=== PATIENT | female | born 1930 | race Caucasian/White ===

== ENCOUNTER 2017-06-11 15:08 | Inpatient (IN) | payer MEDICARE, OTHER ==
[~2017-06-11] VITALS: Ht 160 cm; Wt 101.0 kg
[~2017-06-11 15:08] MED LIST: ATEN25TA7 PO; CELE200 PO; DIT5 PO; HYDR12.5 PO; LISI10TA PO
[2017-06-11 15:28] VITALS: BP 141/93; PULSE 107; RESP 20; O2SAT 96
--- NOTE | 2017-06-11 18:08 | ED.REPORT ---
HPI-General Illness Date of Service Jun 11, 2017 ED Provider: Sherman Langford DO Pt is an 86 y/o female w/ a hx of HTN presenting to the ED c/o R hip pain secondary to mechanical ground level fall which occurred prior to arrival. The patient was upstairs in the hospital visiting a friend and her foot apparently got stuck on the floor causing her to lose her balance and fell to the floor onto her right hip. She was able to ambulate briefly after the fall. Her only complaint at this time is right hip pain. Pt denies numbness/weakness, syncope, change in LOC, head injury, any other injury, any other site of pain. Nursing Notes Stated Complaint: FALL RIGHT HIP PAIN Chief Complaint: Extremity Trauma Nursing Notes Reviewed: Yes Allergies: Coded Allergies: No Known Allergies (Unverified , 02/20/16) Scheduled Atenolol (Atenolol) 25 Mg Tablet 25 MG PO DAILY Atorvastatin (Lipitor) 20 Mg Tablet 20 MG PO DAILY Hydrochlorothiazide (Hydrochlorothiazide) 12.5 Mg Capsule 12.5 MG PO DAILY Lisinopril (Lisinopril) 10 Mg Tablet 10 MG PO DAILY Oxybutynin Chloride (Oxybutynin Chloride) 5 Mg Tablet 5 MG PO DAILY General Time Seen by MD: 18:04 Chief Complaint Other (fall) Hx Obtained From: Patient Arrived By: Wheelchair Sudden in Onset?: Yes Onset Occurred: Just prior to arrival Symptom Duration: Since onset Location: : Hip right Quality: Painful Severity: Current: Moderate Severity: Maximum: Moderate Past Medical History Past Medical History Reports: Hypertension Past Surgical History bladder surgery X4 bilateral knee replacement. Smoking History Former Smoker Social History Alcohol Use: "Social" Drug Use: Denies drug use Ambulatory Status Independent Review of Systems Full Review of Systems Constitutional: Denies: Chills, Fever Respiratory: Denies: Pleuritic pain Cardiovascular: Denies: Chest pain GI: Denies: Abdominal pain Musculoskeletal: Reports: Extremity pain, Joint pain Neurologic: Denies: Abnormal movement, Bladder dysfunction, Bowel dysfunction, Change LOC, Confusion, Dizziness, Focal weakness, Headache, Lightheaded, Numbness, Problem walking, Seizure, Shaking, Slurred speech, Spinning sensation , Syncope, Unable to speak, Vision change, Weakness Complete sys rev & neg: except as marked. Physical Exam Vital Signs Vital Signs Date Time Temp Pulse Resp B/P Pulse Ox O2 Delivery O2 Flow Rate FiO2 06/11/17 20:57 89 16 175/92 98 Room Air 06/11/17 15:28 36.8 107 20 141/93 96 Room Air Initial VS: Reviewed, Vital signs abnormal Head / Eyes: Atraumatic, Normocephalic, PERRL ENT: Mucous membranes moist, Conjunctiva normal, No scleral icterus Neck: Supple, Full range of motion Respiratory: Breath sounds normal, Clear to auscultation, No respiratory distress Cardiovascular: Regular rate & rhythm, Heart sounds normal, Intact distal pulses Abdomen / GI: Soft, Non-tender, No guarding, No rebound, No distention Skin: Warm, Dry, No cyanosis Neurologic: Alert, Oriented, Nonfocal Psychiatric: Mood/affect normal, Behavior normal, Normal thought content General/Constitutional: Awake, Alert, No acute distress, Cooperative, Not toxic appearing Lower Extremity / Pelvis / MS: Neurologic intact, Vascular intact RLE: Externally rotated, shortened, tender over right hip. Interpretation & Diagnostics Lab Results Interpretation Result Diagram: 06/13/17 0528 06/13/17 0528 Test 06/11/17 20:14 06/11/17 21:17 Prothrombin Time 10.2sec (8.1-12.5) Prothromb Time International Ratio 0.95ratio Thyroid Stimulating Hormone (TSH) 1.790uIU/mL (0.450-4.500) Free Thyroxine 1.03ng/dL (0.82-1.77) Urine Color Straw (YELLOW) Urine Appearance Hazy (CLEAR,HAZY) Urine pH 5.0 (5.0-8.0) Urine Specific [place] 1.018 (1.003-1.035) Urine Protein Negativemg/dL (NEG,TRACE) Urine Glucose (UA) Negativemg/dL (NEGATIVE) Urine Ketones Negativemg/dL (NEGATIVE) Urine Occult Blood Negative (NEGATIVE) Urine Nitrite Positive (NEGATIVE) Urine Bilirubin Negative (NEGATIVE) Urine Urobilinogen Normalmg/dL (NORMAL) Urine Leukocyte Esterase Trace (NEGATIVE) Urine RBC 0-2/hpf (0-2) Urine WBC 6-10/hpf (0-5) Urine Epithelial Cells Few/hpf (NONE-MOD) Urine Crystals None seen (NONE SEEN) Urine Bacteria Many/hpf (NONE-FEW) Urine Hyaline Casts None/lpf (NONE) Urine Granular Casts None seen (NONE SEEN) Urine Waxy Casts None seen (NONE SEEN) Urine Red Blood Cell Casts None seen (NONE SEEN) Urine White Blood Cell Casts Rare (NONE SEEN) Urine Mucus Present (None Seen) Urine Trichomonas None seen (NONE SEEN) Urine Yeast None (NONE SEEN) Urinalysis Comment None Urine Culture Reflexed Indicated X-Ray Chest Interpretation Chest Xray Interpretation: IMPRESSION: No acute pulmonary process. Dictated by: Marisa Lora M.D. on 06/11/2017 at 21:13 Approved by: Marisa Lora M.D. on 06/11/2017 at 21:13 View: Portable, 1 view Interpretation / Wet Read by: Interpret - Radiologist X-Ray Interpretation Xray Interpretation: IMPRESSION: Impacted right femoral neck fracture Dictated by: Marisa Lora M.D. on 06/11/2017 at 21:10 Approved by: Marisa Lora M.D. on 06/11/2017 at 21:11 X-Ray Ordered: Pelvis, Hip right Interpretation / Wet Read by: Interpret - Radiologist Re-Eval/Medical Decision Med Decision/Clinical Course Mechanical mechanism for pt fall, however labs reveal leukocytosis and UTI findings. Pt treated with rocephin. Dr. Deluca consulted and will perform surgery tomorrow. Pt admitted to hospital as unable to ambulate. Initially tachycardic but HR slowed with pain control. HTN felt to be secondary to pain Source of Hx: Old records Time of Eval: 21:23 Re-Evaluation/Progress Note: Pt rechecked. Comfortable. Discussed imaging findings. Consultation #1: Referral / Consult Name: Theron Deluca DO Consulted With: Orthopedic Call Returned at: 21:39 Director Hr Communications: Agrees with eval, Agrees with plan Note: NPO at midnight. Admit to hospitalist. Will perform surg tomorrow. Consultation #2: Referral / Consult Name: Yanni Luna MD Consulted With: Hospitalist Call Returned at: 22:02 Director Hr Communications: Will see patient, Agrees with eval, Agrees with plan, Accepts admit Counseled Regarding: Diagnosis, Lab results, Need for admission Discharge & Departure Primary Impression: Fracture of femoral neck, right Encounter type: initial encounter Fracture type: closed Qualified Code: S72.001A - Fracture of unspecified part of neck of right femur, initial encounter for closed fracture Additional Impressions: Fall from ground level Leukocytosis Leukocytosis type: unspecified Qualified Code: D72.829 - Elevated white blood cell count, unspecified UTI (urinary tract infection) Urinary tract infection type: site unspecified Hematuria presence: without hematuria Qualified Code: N39.0 - Urinary tract infection, site not specified Tachycardia Hypertension Hypertension type: essential hypertension Qualified Code: I10 - Essential ( primary) hypertension Disposition: ADMITTED TO HOSPITAL Discharge Condition All VS Reviewed: Yes Condition: Stable Referrals: Solange Ma (PCP) Raza Attestation Portions of this note were transcribed by Dave Rushing. I, Dr. Langford personally performed the history, physical exam and medical decision-making; I reviewed and confirmed the accuracy of the information in the transcribed note. Signed by Raza Wang, 06/11/17 - 1830 copies to: Solange Ma Gary R DO Jun 11, 2017 18:08 DAVE RUSHING Jun 11, 2017 18:23 Urine Mucus Present (None Seen) Urine Trichomonas None seen (NONE SEEN) Urine Yeast None (NONE SEEN) Urinalysis Comment None Urine Culture Reflexed Indicated X-Ray Chest Interpretation Chest Xray Interpretation: IMPRESSION: No acute pulmonary process. Dictated by: Marisa Lora M.D. on 06/11/2017 at 21:13 Approved by: Marisa Lora M.D. on 06/11/2017 at 21:13 View: Portable, 1 view Interpretation / Wet Read by: Interpret - Radiologist X-Ray Interpretation Xray Interpretation: IMPRESSION: Impacted right femoral neck fracture Dictated by: Marisa Lora M.D. on 06/11/2017 at 21:10 Approved by: Marisa Lora M.D. on 06/11/2017 at 21:11 X-Ray Ordered: Pelvis, Hip right Interpretation / Wet Read by: Interpret - Radiologist Re-Eval/Medical Decision Source of Hx: Old records Time of Eval: 21:23 Re-Evaluation/Progress Note: Pt rechecked. Comfortable. Discussed imaging findings. Consultation #1: Referral / Consult Name: Theron Deluca DO Consulted With: Orthopedic Call Returned at: 21:39 Director Hr Communications: Agrees with eval, Agrees with plan Note: NPO at midnight. Admit to hospitalist. Will perform surg tomorrow. Consultation #2: Referral / Consult Name: Yanni Luna MD Consulted With: Hospitalist Call Returned at: 22:02 Director Hr Communications: Will see patient, Agrees with eval, Agrees with plan, Accepts admit Counseled Regarding: Diagnosis, Lab results, Need for admission Discharge & Departure Primary Impression: Fracture of femoral neck, right Encounter type: initial encounter Fracture type: closed Qualified Code: S72.001A - Fracture of unspecified part of neck of right femur, initial encounter for closed fracture Additional Impressions: Fall from ground level Leukocytosis Leukocytosis type: unspecified Qualified Code: D72.829 - Elevated white blood cell count, unspecified UTI (urinary tract infection) Urinary tract infection type: site unspecified Hematuria presence: without hematuria Qualified Code: N39.0 - Urinary tract infection, site not specified Disposition: ADMITTED TO HOSPITAL Discharge Condition All VS Reviewed: Yes Condition: Stable Referrals: Solange Ma (PCP) Scribe Attestation Portions of this note were transcribed by Dave Rushing. I, Dr. Langford personally performed the history, physical exam and medical decision-making; I reviewed and confirmed the accuracy of the information in the transcribed note. Signed by Raza Wang, 06/11/17 - 1830 copies to: Solange Ma Gary R DO Jun 11, 2017 18:08 DAVE RUSHING Jun 11, 2017 18:23
[2017-06-11] MEDS ORDERED: Ondansetron 2 mg/mL 2 mL Inj IVPUSH ONE (18:30)
[2017-06-11] MEDS: HYDROmorphone 0.5 mg/0.5 mL iSecure Syringe IVPUSH PRN ×2 (20:05→22:23)
[2017-06-11 20:27] LABS: BASOPHILS % (AUTO) 0.2 % (0-3); EOSINOPHILS % (AUTO) 0.1 % (0-5); MONOCYTES % (AUTO) 5.4 % (4-12); Mean Corpuscular Hemoglobin 30.3 pg (27.0-35.0); Mean Corpuscular Volume 92.8 fL (81-100); NEUTROPHILS % (AUTO) 89.9 % (40-74); Platelet Count 186 bil/L (150-400)
[2017-06-11 20:57] VITALS: BP 175/92; PULSE 89; RESP 16; O2SAT 98
--- NOTE | 2017-06-11 21:13 | DRSVH ---
PROCEDURE: X-RAY PELVIS W/LAT HIP (RT) ([id number]) INDICATIONS: fall TECHNIQUE: AP pelvis with lateral view(s) of the right hip(s). COMPARISON: None. FINDINGS: Bones: There is a right impacted femoral neck fracture. No gross dislocation. Soft tissues: The visualized bowel gas pattern is normal. No suspicious soft tissue calcifications. IMPRESSION: Impacted right femoral neck fracture Dictated by: Marisa Lora M.D. on 06/11/2017 at 21:10 Approved by: Marisa Lora M.D. on 06/11/2017 at 21:11
--- NOTE | 2017-06-11 21:15 | DRSVH ---
PROCEDURE: X-RAY CHEST ONE VIEW ([id number]) INDICATIONS: FALL, PREOPERATIVE HIP TECHNIQUE: One view of the chest was acquired. COMPARISON: [facility], CR, XR CHEST 2VW, 02/20/2016, 11:50. FINDINGS: Surgical changes and devices: None. Lungs and pleura: No pleural effusions or pneumothorax. Lungs are clear. Mediastinum: Mediastinal contours appear normal. Heart size is normal. Bones and chest wall: No suspicious bony lesions. Overlying soft tissues appear unremarkable. IMPRESSION: No acute pulmonary process. Dictated by: Marisa Lora M.D. on 06/11/2017 at 21:13 Approved by: Marisa Lora M.D. on 06/11/2017 at 21:13
[2017-06-11 21:28] LABS: APPEARANCE,URINE HAZY (CLEAR,HAZY); COLOR,URINE STRAW (YELLOW); OCCULT BLOOD,URINE NEGATIVE (NEGATIVE); UROBILINOGEN,URINE NORMAL (NORMAL)
[2017-06-11] MEDS ORDERED: cefTRIAXone Inj 1,000 MG in Dextrose 5% Minibag Plus 50 ML IV ONE (22:05)
[2017-06-11 22:41] VITALS: BP 163/89; PULSE 90; RESP 16; O2SAT 100
[2017-06-11 22:56] LABS: INR 0.95 ratio
[2017-06-11] MEDS ORDERED: Polyethylene Glycol (PEG) 17 Gm Powder PO PRN (23:05)
[2017-06-11] MEDS ORDERED: Lactated Ringer's 1,000 ML IV SCH (23:05)
[2017-06-11] MEDS ORDERED: Alum-Mag Hydrox-Simeth 30 mL Suspension PO PRN (23:05)
[2017-06-11] MEDS ORDERED: Ondansetron 2 mg/mL 2 mL Inj IVPUSH PRN (23:05)
[2017-06-11] MEDS ORDERED: HYDROcodone-APAP 5-325 mg Tablet PO PRN (23:05)
[2017-06-11 23:25] VITALS: BP 174/104; PULSE 85; RESP 17; O2SAT 97
--- NOTE | 2017-06-11 23:25 | PCM.HPMED ---
Subjective Date of Service Jun 11, 2017 Primary Provider: Admitting Physician: Yanni Luna MD Primary Care Physician: Solange Ma Attending Physician: Yanni Luna MD Chief Complaint: GLF, right hip pain History of Present Illness: 86 yo F with history of HTN, hyperparathyroidism, osteoporosis, and OA who presented to the ED for right hip pain after a mechanical GLF earlier today. She reports that she was visiting a friend in the hospital when she had her foot caught on the ground, loss balance, and fell on her right hip. After the fall, she was still able to briefly walk, but was having fairly severe pain on her right hip. She denies ever losing consciousness, hitting her head, or any confusion afterwards. Prior to the episode, she did not have any CP, SOB, fevers , or dizziness. She was basically at her regular baseline prior to the fall. She does not use any assistive device for ambulation at baseline. In the ED, she was mildly hypertensive but afebrile and stable., Her hip x-ray showed an impacted right femoral neck fracture, and her CBC showed a white count of 18.4 with 90% neutrophils. Her CMP did show a calcium of 11.2. Her UA was positive for nitrites and trace leukocyte esterase with 6-10 white blood cells. Patient at baseline has urinary incontinence issues and has not noticed any dysuria or fevers or flank pain. Review of Systems: Comprehensive review of systems was conducted with the patient and found to be negative except as noted above in HPI. Allergies Coded Allergies: No Known Allergies (Unverified , 02/20/16) [facility] acetaminophen 325 mg tablet take 2 tablet by oral route every 6 hours as needed LIPITOR 10MG TABLET TAKE 1 TABLET BY ORAL ROUTE EVERY DAY lisinopril 10 mg tablet take 1 tablet by oral route every day OXYBUTYNIN 5MG TABS TABLET TAKE 1 TABLET BY ORAL ROUTE 2 TIMES EVERY DAY Vitamin D3 1,000 unit capsule Take two capsules by mouth once a day PMH Hypertension Hyperparathyroidism with hypercalcemia Osteoarthritis Hyperlipidemia Urinary incontinence with overactive bladder Vitamin D deficiency Osteoporosis Surgical History Bilateral TKR Total hysterectomy Prolapsed bladder repair 4 Family History Family history of heart disease and parkinson's Social History Hx Alcohol Use: Yes (rare) Hx Substance Use: No Smoking Status: Former Smoker (Quit in ) Living Arrangement: with Family Exam Vital Signs Vital Sign - Last Date Time Temp Pulse Resp B/P Pulse Ox O2 Delivery O2 Flow Rate FiO2 06/11/17 22:41 36.2 90 16 163/89 100 Room Air Exam General: Obese elderly female who appears in mild pain at rest HEENT: Normocephalic, atraumatic. PERRLA, EOMI. Anicteric sclerae, moist conjunctivae, and no lid lag. Oropharynx free of erythema and cobble stoning with moist mucosa. Upper dentures noted Neck: Supple with full range of motion. No jugular venous distension. Cardiovascular: Regular rate and rhythm with soft systolic murmur Pulmonary: Clear to auscultation bilaterally with no crackles, wheezes, or rhonchi. Normal respiratory effort with no use of accessory muscles. Abdomen: Obese, Bowel tones present. Soft, nontender, nondistended. No hepatosplenomegaly or masses appreciated. MSK: Right hip tender to palpation laterally and with minimal motion. No ecchymosis noted yet. Bilateral knee midline scars. No other tender or swollen joints noted. No cyanosis or edema noted. Skin: Warm, dry, intact Neurological: Cranial nerves grossly intact. MS grossly intact except in Right hip due to pain. Light sensation grossly intact Psychiatric: Normal mood and affect. Alert and oriented to person, place, and time. Pleasant and cooperative Lab and Diagnostics Result Diagram: 06/11/17201306/11/172013 X-Rays, CTs and MRIs PROCEDURE: X-RAY PELVIS W/LAT HIP (RT) ([id number]) IMPRESSION: Impacted right femoral neck fracture Assessment & Plan 86 yo F with history of HTN, hyperparathyroidism, osteoporosis, and OA who presented to the ED for right hip pain after a mechanical GLF earlier today. Admitted for right femoral neck impacted fracture. Right Femoral Neck Fracture, Acute, POA As demonstrated on hip xray. Orthopedics consulted NPO after midnight for procedure tomorrow. IVF 80cc/hr Pain control with Toradol, Percocet, and IV Dilaudid for severe pain PT/OT ordered Possible UTI, POA UA positive for nitrites and trace LEs. Patient does have chronic urinary incontinence, this may be due to just colonization Ceftriaxone was started in the ED on 06/11, we will plan to continue this Essential HTN, POA Mildly elevated on Admission, likely exacerbated due to pain Will give her the Lisinopril dosage tonight to help control her HTN Hyperparathyroidism, POA Currently undergoing evaluation for parathyroid nodule Ca level mildly elevated on admission Osteoporosis, POA Was previously on bisphosphonate therapy, but has not on this currently Osteoarthritis, POA S/p bilateral TKR, pain management as above Tylenol prn fever/pain Bowel Regimen prn constipation CODE STATUS: Full resuscitation Patient is admitted under inpatient status with expected length of stay greater than 2 midnights due to severity of presenting symptoms, risk of adverse event, and complexity of treatment plan. Pain Evaluation: Adequate Pain Control VTE Prophylaxis: Sub-Q Heparin (Unfractionated) Resuscitation Status: CPR: Attempt Resuscitation Attending Statement Pt seen and examined by myself and agree with above plan. Rafy Garcia DO Jun 11, 2017 23:25 Yanni Luna MD Jun 12, 2017 05:57
[2017-06-11 23:41] VITALS: BP 163/89; PULSE 90; RESP 16; O2SAT 100
[2017-06-12] VITALS (19 sets, daily range): BP systolic 95–157; BP diastolic 45–93; PULSE 65–89; RESP 12–20; O2SAT 96–100
[2017-06-12] MEDS: HYDROmorphone 0.5 mg/0.5 mL iSecure Syringe IVPUSH PRN ×4 (01:27→13:05)
[2017-06-12] MEDS ORDERED: ATOR20TA PO (02:23)
[2017-06-12 06:17] LABS: BASOPHILS % (AUTO) 0.3 % (0-3); EOSINOPHILS % (AUTO) 0.2 % (0-5); MONOCYTES % (AUTO) 11.1 % (4-12); Mean Corpuscular Hemoglobin 30.3 pg (27.0-35.0); Mean Corpuscular Volume 92.8 fL (81-100); NEUTROPHILS % (AUTO) 78.5 % (40-74); Platelet Count 184 bil/L (150-400)
[2017-06-12] MEDS ORDERED: OXYB5TAB10 PO (07:32)
[2017-06-12] MEDS ORDERED: ATEN25TA PO (07:32)
[2017-06-12] MEDS ORDERED: Lactated Ringer's 1,000 ML IV ONE ×3 (09:31→15:10)
--- NOTE | 2017-06-12 09:32 | PCM.HPANE ---
Patient Data Surgeon Admitting Provider:Yanni Luna MD Attending Provider:Lucas Barcenas MD Primary Care Physician:Solange Ma Other Provider: Reason for Visit Rt Hip Fracture,Uti Ht/WT & BMI Height (Feet): 5 Height (Inches): 3.00 Weight (Kilograms): 94.100 Body Mass Index 36.76 Allergies Coded Allergies: No Known Allergies (Unverified , 02/20/16) Past Anesthesia History Anesthesia History: Denies:: Abnormal Airway, Anesthesia Reactions, Difficult Intubation, Fam Anesthesia Reaction, Fam Malignant Hypertherm, Malignant Hyperthermia Diabetes History Hx Diabetes?: No MRSA MRSA: No Medications Active Scripts Hydrochlorothiazide 12.5 Mg Fnjbkuh71.5 Mg PO DAILY 90 Days Ref 1 Prov:Jared Bowers MD 02/20/16 Lisinopril 10 Mg [id number] Mg PO DAILY htn #90 TABLET Ref 2 Prov:Jared Bowers MD 02/20/16 Reported Medications Atenolol 25 Mg [id number] Mg PO DAILY #30 TABLET Ref 0 06/12/17 Oxybutynin Chloride 5 Mg Tablet5 Mg PO DAILY #180 06/12/17 Atorvastatin (Lipitor)20 Mg [id number] Mg PO DAILY Ref 0 06/12/17 Discontinued Reported Medications Celecoxib-Expunged Drug, Do Not Renew! 200 Mg [id number] Mg PO DAILY 06/11/10 Lisinopril-Expunged Drug, Do Not Renew! 10 Mg Oyqjci93 Mg PO DAILY 06/11/10 Atenolol-Expunged Drug, Do Not Renew! 25 Mg Yitqnq25 Mg PO DAILY 06/11/10 Oxybutynin-Expunged Drug, Do Not Renew! (Ditropan-Expunged Drug, Do Not Renew!) 5 Mg Tablet5 Mg PO DAILY 06/11/10 History History of ENT Problems?: No HEENT History: Positive for:: Cataracts Denies:: Abnormal Airway Difficult Intubation Dysphagia Glaucoma Hearing Problem Sinus Problem TMJ Denture Type: Full- Upper Partial- Lower Teeth Condition: Within Normal Limits Hx of Heart Problems?: Yes Cardiovascular History: Positive for:: Edema (right side ankle) Hypertension Denies:: AICD Abdominal Aortic Aneurism Atrial Fibrillation Cardiac Surgery Chest Pain Congestive Heart Failure Coronary Artery Disease Heart Murmur Irregular Heartbeat Pacemaker Peripheral Vascular Rheumatic Fever Thrombophlebitis Valvular Heart Disease Other Cardiac History: Patient denies chest pain Hx of Respiratory Problem?: No Respiratory History: Denies:: Asthma COPD Chest Surgery Dyspnea Emphysema Hemoptysis Pneumonia Tuberculosis Other Resp Pertinent History: Patient denies sob Hx Neurologic Problems?: No Neurological History: Positive for:: Dizziness (when bending over) Denies:: Alzheimer's Disease CVA Dementia Headaches Parkinson's Disease Seizures Hx of GI Problems?: No Hx of Problems?: No Genitourinary History: Positive for:: Urinary Tract Infection Denies:: HX of Hemodialysis Kidney Stones HX of Peritoneal Dialysis: No Other Pertinent History: present on admission Female Hx: Denies:: Currently Endometriosis Pelvic Inflammatory Problems with Breasts? Hx Musculoskeletal Problems?: Yes Musculoskeletal History: Positive for:: Joint Replacement (bilateral knees) Denies:: Back Injury Degenerative Joint Fibromyalgia Musculoskeletal Trauma Myasthenia Gravis Osteoarthritis Rheumatoid Arthritis Systemic Lupus Hx of Psycho/Social Problems?: No Psycho Social History: Denies:: Anxiety Bipolar Disorder Hx Depression Suicide Attempt Hx Surgeries?: Yes Hx Any Other Health Problems?: No Other History: Positive for:: Hospitalization Thyroid Disease (nodules) Denies:: Cancer History Blood Transfusions: Positive for:: Accept Blood Products? Denies:: Blood Transfuse Reaction Blood Transfusions Hx Diabetes: No Hx Alcohol Use: YesAlcoholic Drinks Per Day: Occassionally 1-2 weekHx Substance Use: No Smoking Status: Former Smoker (Quit in ) Have You Smoked inLast 12 mo: Yes Stop/Bang Treated for Sleep Apnea?: No S-Snoring: Do You Snore Loudly: No T-Tired: feel tired, fatigued: No O-Obsered: Observed not breath: No P-Blood Pressure: treated: Yes B- Body Mass Index > 35 kg/m2: Yes A- Age over 50: Yes N- Neck Large Circumference: Yes G- Gender Male: No CANDE Total Score: 4 Risk Assessment Category Category 1A: Patient has history of documented sleep apnea, and HAS NOT received any narcotic, sedative or anesthesia administration during this stay. Category 1B: Patient has history of documented sleep apnea, and HAS received any narcotic , sedative or anesthesia administration during this stay Category 2: Patient has SUSPECTED Obstructive Sleep Apnea, and HAS received any narcotic , sedative or anesthesia administration during this stay. Category 3: Patient has SUSPECTED Obstructive Sleep Apnea and HAS NOT received narcotic, sedative or anesthesia administration during this stay. Category 4: Outpatient in Procedural Areas with known sleep apnea or who screen positive for High Risk via the STOP/BANG questionnaire. Exam Exam Vital Signs Vital Signs Date Time Temp Pulse Resp B/P Pulse Ox O2 Delivery O2 Flow Rate FiO2 06/12/17 05:49 36.9 86 17 153/93 97 Room Air General Appearance: Alert, Oriented X3, Cooperative HEENT/AIRWAY: MP 2, Neck Movement (from), Mouth Opening (wnl) Lungs: Clear to Auscultation Heart: Exam Unremarkable Meds/Labs/Diagnostics Admission Meds Current Medications Ondansetron HCl 4 mg 4 mg ONCE ONCE IVPUSH Last administered on 06/11/17 20: 03; Start 06/11/17 at 18:30; Stop 06/11/17 at 18:31; Status DC Ceftriaxone Sodium 1000 mg/ Dextrose/Water 50 ml @ 100 mls/hr ONCE ONCE IV Last administered on 06/11/17 22:14; Start 06/11/17 at 22:05; Stop 06/11/17 at 22:34; Status DC Lactated Ringer's (Lr) 1,000 ml @ 80 mls/hr [id number] IV Last administered on 00:19; Start 06/11/17 at 23:05 Lisinopril (Zestril) 10 mg DAILY PO Last administered on 06/12/17 00:17; Start 06/11/17 at 23:20 Labs Test 06/11/17 20:14 06/11/17 21:17 06/12/17 05:47 Prothrombin Time 10.2sec (8.1-12.5) Prothromb Time International Ratio 0.95ratio Total Bilirubin 0.4mg/dL (0.0-1.2) Aspartate Amino Transf (AST/SGOT) 35U/L (0-50) Alanine Aminotransferase (ALT/SGPT) 30U/L (0-32) Alkaline Phosphatase 79U/L (25-165) Total Protein 7.6g/dL (6.4-8.4) Albumin 4.2g/dL (3.4-5.0) Thyroid Stimulating Hormone (TSH) 1.790uIU/mL (0.450-4.500) Free Thyroxine 1.03ng/dL (0.82-1.77) Urine Color Straw (YELLOW) Urine Appearance Hazy (CLEAR,HAZY) Urine pH 5.0 (5.0-8.0) Urine Specific Boswell 1.018 (1.003-1.035) Urine Protein Negativemg/dL (NEG,TRACE) Urine Glucose (UA) Negativemg/dL (NEGATIVE) Urine Ketones Negativemg/dL (NEGATIVE) Urine Occult Blood Negative (NEGATIVE) Urine Nitrite Positive (NEGATIVE) Urine Bilirubin Negative (NEGATIVE) Urine Urobilinogen Normalmg/dL (NORMAL) Urine Leukocyte Esterase Trace (NEGATIVE) Urine RBC 0-2/hpf (0-2) Urine WBC 6-10/hpf (0-5) Urine Epithelial Cells Few/hpf (NONE-MOD) Urine Crystals None seen (NONE SEEN) Urine Bacteria Many/hpf (NONE-FEW) Urine Hyaline Casts None/lpf (NONE) Urine Granular Casts None seen (NONE SEEN) Urine Waxy Casts None seen (NONE SEEN) Urine Red Blood Cell Casts None seen (NONE SEEN) Urine White Blood Cell Casts Rare (NONE SEEN) Urine Mucus Present (None Seen) Urine Trichomonas None seen (NONE SEEN) Urine Yeast None (NONE SEEN) Urinalysis Comment None Urine Culture Reflexed Indicated White Blood Count 11.6th/mm3 (3.8-10.1) Red Blood Count 4.33mil/mm3 (3.90-5.20) Hemoglobin 13.1g/dL (12.0-15.6) Hematocrit 40.2% (35.0-46.0) Mean Corpuscular Volume 92.8fL (81-100) Mean Corpuscular Hemoglobin 30.3pg (27.0-35.0) Mean Corpuscular Hemoglobin Concent 32.6% (32.0-37.0) Red Cell Distribution Width 13.1% (12.3-15.4) Platelet Count 184bil/L (150-400) Neutrophils (%) (Auto) 78.5% (40-74) Lymphocytes (%) (Auto) 9.6% (14-46) Monocytes (%) (Auto) 11.1% (4-12) Eosinophils (%) (Auto) 0.2% (0-5) Basophils (%) (Auto) 0.3% (0-3) Sodium Level 141mEq/L (134-144) Potassium Level 5.0mEq/L (3.5-5.2) Chloride Level 104mEq/L (97-108) Carbon Dioxide Level 22mmol/L (18-29) Blood Urea Nitrogen 27mg/dL (8-27) Creatinine 1.04mg/dL (0.57-1.00) Estimat Glomerular Filtration Rate 72mL/min (>59) Glucose Level 113mg/dL (60-99) Calcium Level 10.7mg/dL (8.5-10.1) Plan Impression Patient chart reviewed, patient interviewed and anesthestic plan with risks, benefits, and alternatives discussed, and informed consent obtained. ASA Physical Status: ASA2 Mod Systemic Disease Anesthetic Plan: GA Bene/Risks/Altern/Consents: Yes HP Complete Prior to Induction: Yes Andrews Pool MD Jun 12, 2017 09:32
--- NOTE | 2017-06-12 12:34 | CONS ---
[address] [address] CONSULTATION REPORT PATIENT: ROGER REID : [id number] MR#: [id number] ADMIT: 06/11/2017 JOB ID: [id number] DATE OF SERVICE: 06/12/2017 ORTHOPEDIC CONSULTATION: CHIEF COMPLAINT: Right hip pain. HISTORY PRESENT ILLNESS: This is a pleasant 86-year-old female that was visiting a friend on the 3rd floor of the hospital. She got up to leave and lost her balance and fell directly onto her right hip. She was able to get up to a chair but was unable to place weight onto the lower extremity after she tried to get back up. They thus transferred her to the emergency department where x-rays were obtained demonstrating a hip fracture. Orthopedics was also consulted for further evaluation and treatment. The patient only complains of right hip pain. She has no difficulty with ambulation prior to the fall. She does not utilize any assistive devices despite having two previous total knee arthroplasties, the most recent done about seven years ago. She denies any numbness or tingling in the lower extremities. She denies any other associated symptoms. PAST MEDICAL HISTORY: Hypertension, leaky bladder. PAST SURGICAL HISTORY: Bilateral total knee arthroplasties, multiple bladder surgeries, hysterectomy, and knee surgery to remove a retractor that was left. FAMILY HISTORY: Noncontributory. SOCIAL HISTORY: The patient denies any tobacco or illicit drug utilization. She drinks one lemon drop a week and has one Denia's a week. She lives at home by herself. MEDICATIONS: Please see electronic medical record for a list of the patient's medications. ALLERGIES: No known drug allergies. REVIEW OF SYSTEMS: The patient denies any fevers, sweats, chills, chest pain, shortness of breath, nausea, vomiting, or diarrhea. Complains mainly of right hip pain as described in the history of present illness. PHYSICAL EXAMINATION: General: The patient is alert, oriented, in no apparent distress. HEENT: Normocephalic, atraumatic. Extraocular movements intact. Nares patent. Lungs: No audible wheezes or signs of respiratory distress. Neuro: Cranial nerves 2-12 are intact. Extremities: Gross observation of the patient's right lower extremity: No open wounds, abrasions, or ecchymosis. The right leg is shortened and externally rotated compared to the contralateral side. There is tenderness to palpation to the lateral hip and pain with log roll and axial loading of the right lower extremity. There is intact sensation to the lower extremity edema with palpable dorsalis pedis and posterior tib pulses. She is able to dorsiflex and plantar flex the ankle and toes without any difficulty. DIAGNOSTIC STUDIES: AP of the pelvis and lateral of the hip was obtained yesterday in the emergency department. Demonstrates a displaced intracapsular femoral neck fracture. IMPRESSION: Right displaced intracapsular femoral neck fracture. PLAN: Discussed with the patient, as well as her family that is present, the risks, benefits, alternatives, and indications to proceed with a right hip hemiarthroplasty. She understands the risks include, but are not limited to neurovascular injury, tendon injury, infection, failure of fixation and stability, all which may require further intervention. The patient had all questions answered. Consent was signed and placed in the chart. Following surgery on postoperative day number one she will be weightbearing as tolerated with a walker. Depending on how well she does with therapy will dictate whether she goes to a jail facility versus a rehabilitation center. It is not likely that the patient will be discharged home with home health as she does not have any help at home as she lives by herself. Presumed hospitalization will be three days.
[2017-06-12] MEDS ORDERED: Ondansetron 2 mg/mL 2 mL Inj IVPUSH PRN (13:10)
[2017-06-12] MEDS ORDERED: Lactated Ringer's 1,000 ML IV SCH (13:10)
[2017-06-12] MEDS ORDERED: fentaNYL-PF 50 mCg/mL 2 mL Inj IVPUSH PRN (13:10)
[2017-06-12] MEDS ORDERED: HYDROmorphone 1 mg/mL Inj IVPUSH PRN (13:10)
[2017-06-12] MEDS ORDERED: MetoCLOpramide 5 mg/mL 2 mL Inj IVPUSH PRN (13:10)
[2017-06-12] MEDS ORDERED: EPHEDrine Sulfate 50 mg/mL Inj IVPUSH PRN (13:10)
[2017-06-12] MEDS ORDERED: Dexamethasone 4 mg/mL Inj IVPUSH PRN (13:10)
[2017-06-12] MEDS ORDERED: Phenylephrine 10,000 mCg/mL Inj IVPUSH PRN (13:10)
[2017-06-12] MEDS ORDERED: Lactated Ringer's 500 ML IV PRN (13:10)
[2017-06-12] MEDS ORDERED: Succinylcholine Chloride 20 mg/mL 5 mL Inj ONE (13:38)
[2017-06-12] MEDS ORDERED: Glycopyrrolate 0.2 MG/ML 1mL Inj ONE (13:38)
[2017-06-12] MEDS ORDERED: Neostigmine 1 mg/mL 5 mL Inj ONE (13:38)
[2017-06-12] MEDS ORDERED: fentaNYL-PF 50 mCg/mL 2 mL Inj ONE (13:38)
[2017-06-12] MEDS ORDERED: Dexamethasone 4 mg/mL Inj ONE (13:38)
[2017-06-12] MEDS ORDERED: Ondansetron 2 mg/mL 2 mL Inj ONE (13:38)
[2017-06-12] MEDS ORDERED: EPHEDrine/NS 5 mg/mL 5 mL Syringe ONE (13:38)
[2017-06-12] MEDS ORDERED: Propofol 10,000 mCg/mL 20 mL Inj ONE (13:38)
[2017-06-12] MEDS ORDERED: Bupivacaine-MPF 0.25% 30 mL Inj INFILTRATE ONE (15:41)
[2017-06-12] MEDS ORDERED: Sodium Biphos-Phos 133 mL Enema RECTAL PRN (16:35)
[2017-06-12] MEDS ORDERED: Polyethylene Glycol (PEG) 17 Gm Powder PO PRN (16:35)
[2017-06-12] MEDS ORDERED: Magnesium Hydroxide 10 mL Oral Concentration PO PRN (16:35)
--- NOTE | 2017-06-12 17:36 | PCM.ANEP1 ---
Post Anesthesia PACU Phase 1 Assessment Vital Signs Vital Signs Date Time Temp Pulse Resp B/P Pulse Ox O2 Delivery O2 Flow Rate FiO2 06/12/17 17:20 36.4 78 17 134/67 97 Room Air 06/12/17 17:15 82 12 126/68 98 Room Air 06/12/17 17:10 82 16 126/76 98 Room Air 06/12/17 17:05 84 14 115/68 100 Simple Mask 8 06/12/17 17:00 78 12 132/67 100 Simple Mask 8 06/12/17 16:55 79 16 120/74 100 Simple Mask 8 06/12/17 16:50 81 17 109/60 100 Simple Mask 8 06/12/17 16:45 82 14 118/45 100 Simple Mask 8 06/12/17 16:40 36.6 79 14 134/57 100 Simple Mask 8 06/12/17 10:13 36.8 89 18 157/86 97 Room Air Anesthetic Administered: GA Level of Alertness: Awake, talking DUNBAR's with Equal Strength: Yes Pain: Yes Pain Scale Score: 8 Nausea or Vomiting: No CV Function & Hydration Stable: Yes Airway Device: Lungs: Normal Air Movement PACU Phase 2 Assessment Complications: No Follow up Care: No Patient Instructions Provided: N/A Andrews Pool MD Jun 12, 2017 17:36
--- NOTE | 2017-06-12 18:00 | DRSVH ---
PROCEDURE: X-RAY PELVIS W/LAT HIP (RT) ([id number]) INDICATIONS: post operation TECHNIQUE: AP pelvis and lateral view of the right hip acquired. COMPARISON: [facility], , XR PELVIS W LATERAL HIP RT, 06/11/2017, 20:16. FINDINGS: Bones: Patient is status post right bipolar hip arthroplasty, with hardware components in expected p ositions. The hip joint appears congruent. The visualized bony structures appear intact. Soft tissues: Overlying postoperative changes are noted. No suspicious soft tissue densities. IMPRESSION: Right hip arthroplasty for fracture of the femoral neck. No radiographic abnormality is s een of the procedure. Dictated by: Davy Cody M.D. on 06/12/2017 at 17:57 Approved by: Davy Cody M.D. on 06/12/2017 at 17:58
--- NOTE | 2017-06-12 18:02 | DRSVH ---
PROCEDURE: X-RAY RIGHT TIBIA/FIBULA, TWO VIEWS ([id number]) INDICATIONS: post op TECHNIQUE: 2 views of the tibia and fibula were acquired. COMPARISON: None. FINDINGS: Bones: No fractures or dislocations. No suspicious bony lesions. Soft tissues: No suspicious soft tissue calcifications or masses. IMPRESSION: No bony abnormality is seen in the 2 views of the right leg. There is a knee arthroplasty of the right knee. Dictated by: Davy Cody M.D. on 06/12/2017 at 17:58 Approved by: Davy Cody M.D. on 06/12/2017 at 17:59
[2017-06-12] MEDS: Acetaminophen IV 1,000 MG in IV Premix 1 EACH IV SCH (18:18)
[2017-06-12] MEDS ORDERED: 0.9% Sodium Chloride 250 ML ONE (18:19)
--- NOTE | 2017-06-12 18:32 | OP ---
[address] [address] OPERATIVE REPORT PATIENT: ROGER REID : 1930 MR#: [id number] ADMIT: 06/11/2017 JOB ID: [id number] DATE OF SURGERY: 06/12/2017 PREOPERATIVE DIAGNOSIS(ES): Right displaced intracapsular femoral neck fracture. POSTOPERATIVE DIAGNOSIS(ES): Right displaced intracapsular femoral neck fracture. PROCEDURE: Right hip hemiarthroplasty. SURGEON: Theron Deluca DO. MOMD TEACHER: Batsheva Crawford PA-C. The assistance of Batsheva Crawford PA-C, was necessary for help with retraction as well as for dislocation and reduction of the hip. She was also used for primary closure and closure of the case. ANESTHESIA: General. HISTORY: The patient is a pleasant, 86-year-old female that was at the hospital yesterday visiting her friend. On her way out, she slipped and landed directly onto her right side. She was unable to further bear weight after trying to sit down for a short period of time and getting up, and thus she was transported downstairs to the emergency department where she was evaluated. X-rays were obtained demonstrating a femoral neck fracture. Orthopedics was consulted. I went over the x-rays with the patient as well as her family demonstrating a displaced femoral neck fracture. She had mainly hip pain and was unable to bear weight onto the right lower extremity. I discussed with them the risks, benefits, alternatives, indications to proceed with a right hip hemiarthroplasty. They understood the risks include, but are not limited to neurovascular injury, tendon injury, infection, debility, stiffness, all of which may require further intervention. Patient had all questions answered. Consent was signed and placed in chart. PROCEDURE IN DETAIL: The patient was brought to the operating suite, placed supine on the operating table. Surgical time-out was then performed. Everyone in the room was in agreement. After appropriate anesthesia was obtained, the patient was placed into the left lateral decubitus position. The body was secured with posts on the pegboard. All of the posts were well-padded. Prominences were all padded including utilization of an axillary roll. The right hip was then prepped and draped in a sterile fashion. A standard lateral approach was utilized, extending in a longitudinal fashion, centered at the level of the greater trochanter. Dissection was carried down to the tensor fascia. The fascia was incised longitudinally in line with the skin incision. This allowed for exposure of the greater trochanter, and the overlying bursa which was excised. The gluteus medius was identified and the anterior 3rd of the gluteus medius was reflected, including a portion of the vastus lateralis as an anterior sleeve. The gluteus minimus was also retracted anteriorly and released off of the trochanter revealing the underlying capsule. The capsule was then opened with an H-shaped capsulotomy. The fracture was identified. A fracture hematoma was then debrided. A neck cut was then made with an oscillating saw. The head was then identified and utilizing a corkscrew as well as a Garcia, was delivered from the operative field. The head measured between a size 42 and a 44. A trial head was then placed within the acetabulum. It was determined to be a trial of a 44 head. The leg was then flexed and externally rotated to deliver the proximal aspect of the femur. A box chisel was used to open the proximal portion of the femur, followed by a canal finder. This was then sequentially broached to a size 5. The trial broach was left in place and this was utilized with a standard offset neck and a 44 mm head. Reduction was unable to be performed adequately. Thus, the neck size was downsized as well as the head. After another reduction attempt, the head was reduced to 42 mm head. The trial components were then reduced. The hip was brought through a full functional range of motion demonstrating excellent range of motion without any instability or dislocation or impingement appreciated. The trial components were then removed with the hip dislocated. The wound was copiously irrigated. Final implants, consisting of a size 5 Tri-Lock Depuy femoral stem, was then press-fit followed by application of a 42 mm bipolar head. The head was impacted onto the neck. Reduction was then performed. Again, the hip was brought through a full functional range of motion, demonstrating no instability, impingement, or dislocation. Further irrigation was then performed followed by closure of the capsule with #5 Ethibond. The gluteus minimus and the gluteus medius were then repaired utilizing a combination of #5 Ethibond, as well as 0-Vicryl. The split within the vastus lateralis was also closed with 0-Vicryl. Overlying fascia was then closed in a running fashion with 0 Vicryl followed by deep subcutaneous stitches as a secondary layer with Vicryl and lee for the skin. The patient was then placed in a bulky soft dressing. ESTIMATED BLOOD LOSS: 200 cc. COMPLICATIONS: None. DISPOSITION: The patient tolerated the procedure well. Anesthesia was reversed. The patient was transferred to the PACU for recovery. IMPLANTS: A DePuy Tri-Lock size 5 press-fit femoral stem with a 42 mm bipolar head. POSTOPERATIVE PLAN: The patient will start with formal physical therapy tomorrow. She will be weightbearing as tolerated. She will likely require discharge to a fdc facility versus a rehab facility either on Wednesday or Wednesday, pending her progress within the hospitalization. The patient will likely be sent home with home health as she lives by herself and does not have any nearby help.
[2017-06-12] MEDS: Senna-Docusate 8.6-50 mg Tablet PO SCH ×2 (19:56→20:10)
[2017-06-12] MEDS: Sodium Chloride LOK Flush 10 mL Syringe IV SCH (20:03)
[2017-06-12] MEDS ORDERED: cefTRIAXone Inj 1,000 MG in Dextrose 5% Minibag Plus 50 ML IV SCH (21:00)
--- NOTE | 2017-06-12 22:36 | PCM.PNMED ---
Subjective Date of Service Jun 12, 2017 Subjective The patient complains of pain in the right hip otherwise she has no new complaints. Exam Vital Signs Vital Sign - Last Date Time Temp Pulse Resp B/P Pulse Ox O2 Delivery O2 Flow Rate FiO2 06/12/17 20:42 36.0 89 20 95/58 98 Room Air 06/12/17 17:55 2 Intake and Output 06/11/17 06/11/17 06/12/17 Cumulative From/Thru 15:00 23:00 07:00 06/11/17 23:25 - 06/12/17 05:55 Intake Total 345 ml 345 ml Output Total 500 ml 500 ml Balance -155 ml -155 ml Intake Oral 0 ml 0 ml IV Total 345 ml 345 ml Output Urine Total 500 ml 500 ml # Bowel Movements 0 0 Exam General: Patient is in no apparent distress prior to surgery. HEENT: Head is atraumatic and normocephalic. Eyes: Pupils are equally round and reactive to light and accommodation. Extraocular muscles are intact. Sclera are white, anicteric. Subconjunctival mucosa is pink. Ears and nose are unremarkable. Oropharynx: There is no mucosal lesions, there is no thrush, there is no pharyngitis. Neck: Is supple, there are no nodes, or masses or tenderness. Chest: Is clear to auscultation and percussion. There are no rales, rhonchi, wheezes or rubs. Heart: Rate, rhythm is regular. There is no murmur, rub or gallop. Abdomen: Good bowel sounds are present. Abdomen is obese, soft, nontender, no organomegaly or masses were appreciated. Extremities: Are symmetrical and well perfused. There is no edema, there is no cellulitis, no rash. Neurologic: There are no focal neurological deficits. Cranial nerves II through XII are intact. There are no sensory or motor deficits. Gait was not tested due to right hip fracture. Psychiatric: Patients mood is calm and shows no sign of agitation. Genital: Deferred Rectal: Deferred Lab and Diagnostics Result Diagram: 06/12/17 0547 06/12/17 0547 X-Rays, CTs and MRIs PROCEDURE: X-RAY PELVIS W/LAT HIP (RT) ([id number]) IMPRESSION: Impacted right femoral neck fracture Assessment & Plan The patient is a 86 -year-old white female with history of HTN, hyperparathyroidism, osteoporosis, and OA who presented to the ED for right hip pain after a mechanical ground-level fall earlier today. Admitted for right femoral neck impacted fracture. # Right Femoral Neck Fracture, Acute, POA - As demonstrated on hip xray. - Orthopedics consulted and Dr. Theron Deluca take the patient to surgery today - NPO after midnight for procedure tomorrow. - IVF 80cc/hr - Pain control with Toradol, Percocet, and IV Dilaudid for severe pain preoperatively. Postoperatively pain control per orthopedic surgery. - PT/OT ordered - DVT prophylaxis per orthopedic surgery. # Possible UTI, POA - UA positive for nitrites and trace LEs. Patient does have chronic urinary incontinence, this may be due to just colonization - Ceftriaxone was started in the ED on 06/11, we will plan to continue this # Essential HTN, POA - Mildly elevated on Admission, likely exacerbated due to pain - Will give her the Lisinopril dosage tonight to help control her HTN # Hyperparathyroidism, POA - Currently undergoing evaluation for parathyroid nodule - Ca level mildly elevated on admission # Osteoporosis, POA - Was previously on bisphosphonate therapy, but has not on this currently # Osteoarthritis, POA - S/p bilateral TKR, pain management as above Tylenol prn fever/pain Bowel Regimen prn constipation Disposition: Patient's post operative course will determine her disposition. However, she is likely to be here for 4872 hours and then be transferred to rehabilitation postoperatively. Pain Evaluation: Adequate Pain Control VTE Prophylaxis: Sub-Q Heparin (Unfractionated) VTE Mechanical Devices: Intermittant Pneumatic CD Resuscitation Status: CPR: Attempt Resuscitation Lucas Barcenas MD Jun 12, 2017 22:35
[2017-06-13] VITALS (8 sets, daily range): BP systolic 72–107; BP diastolic 57–69; PULSE 67–112; RESP 16–20; O2SAT 95–99
[2017-06-13] MEDS: Acetaminophen IV 1,000 MG in IV Premix 1 EACH IV SCH ×4 (00:20→16:35)
[2017-06-13 06:09] LABS: BASOPHILS % (AUTO) 0 % (0-3); EOSINOPHILS % (AUTO) 0 % (0-5); MONOCYTES % (AUTO) 13.3 % (4-12); Mean Corpuscular Hemoglobin 29.8 pg (27.0-35.0); Mean Corpuscular Volume 92.9 fL (81-100); NEUTROPHILS % (AUTO) 83.3 % (40-74); Platelet Count 192 bil/L (150-400)
[2017-06-13 06:54] LABS: Magnesium 1.8 mg/dL (1.6-2.6)
[2017-06-13] MEDS: Sodium Chloride LOK Flush 10 mL Syringe IV SCH ×2 (08:16→16:30)
[2017-06-13] MEDS: Senna-Docusate 8.6-50 mg Tablet PO SCH ×2 (08:19→21:25)
[2017-06-13] MEDS ORDERED: MeTOProlol 1 mg/mL 5 mL Inj IVPUSH ONE (10:25)
[2017-06-13] MEDS ORDERED: 0.9% Sodium Chloride 1,000 ML IV ONE (10:25)
--- NOTE | 2017-06-13 11:05 | PCM.PNORTH ---
Subjective Date of Service: Jun 13, 2017 Visit Information: Reason for Visit Rt Hip Fracture,Uti Surgery/Surgery Date Post-Op Day # 1 status post right hip hemiarthroplasty Date of Admission: Jun 11, 2017 at 22:21 Hospital Day # Subjective Patient is doing very well. She states she has very minimal pain. She has tried to get up twice with physical therapy but has been limited mainly by her heart rate. She feels she can do well with therapy while in the hospital and is more interested in going home with home health rather than a care home facility. She ate breakfast and is tolerating oral intake Objective Exam Objective Gen: Alert and oriented 3, no apparent distress Extremities: Right hip dressing is clean, dry and intact Ecchymosis to the medial thigh SCDs are intact Palpable dorsalis pedis and posterior tibial pulses No calf tenderness, negative Homans + Dorsiflexion and plantarflexion of the ankle and toes without difficulty Vital Signs and I/O Vital Sign - Last Date Time Temp Pulse Resp B/P Pulse Ox O2 Delivery O2 Flow Rate FiO2 06/13/17 08:13 36.7 112 18 107/67 99 Room Air 06/12/17 17:55 2 Intake and Output 06/12/17 06/12/17 06/13/17 Cumulative From/Thru 15:00 23:00 07:00 06/11/17 23:25 - 06/12/17 18:55 Intake Total 1577 ml 707 ml 2629 ml Output Total 800 ml 1300 ml Balance 1577 ml -93 ml 1329 ml Intake Oral 100 ml 100 ml IV Total 1577 ml 607 ml 2529 ml Output Urine Total 600 ml 1100 ml Estimated Blood Loss 200 ml 200 ml # Bowel Movements 0 Lab & Micro Results Laboratory Tests Test 06/13/17 05:28 White Blood Count 13.9th/mm3 (3.8-10.1) Red Blood Count 3.26mil/mm3 (3.90-5.20) Hemoglobin 9.7g/dL (12.0-15.6) Hematocrit 30.3% (35.0-46.0) Mean Corpuscular Volume 92.9fL (81-100) Mean Corpuscular Hemoglobin 29.8pg (27.0-35.0) Mean Corpuscular Hemoglobin Concent 32.0% (32.0-37.0) Red Cell Distribution Width 12.9% (12.3-15.4) Platelet Count 192bil/L (150-400) Neutrophils (%) (Auto) 83.3% (40-74) Lymphocytes (%) (Auto) 3.2% (14-46) Monocytes (%) (Auto) 13.3% (4-12) Eosinophils (%) (Auto) 0% (0-5) Basophils (%) (Auto) 0% (0-3) Sodium Level 136mEq/L (134-144) Potassium Level 4.7mEq/L (3.5-5.2) Chloride Level 102mEq/L (97-108) Carbon Dioxide Level 20mmol/L (18-29) Blood Urea Nitrogen 25mg/dL (8-27) Creatinine 1.08mg/dL (0.57-1.00) Estimat Glomerular Filtration Rate 69mL/min (>59) Glucose Level 145mg/dL (60-99) Calcium Level 9.7mg/dL (8.5-10.1) Magnesium Level 1.8mg/dL (1.6-2.6) Total Bilirubin 0.3mg/dL (0.0-1.2) Aspartate Amino Transf (AST/SGOT) 36U/L (0-50) Alanine Aminotransferase (ALT/SGPT) 19U/L (0-32) Alkaline Phosphatase 57U/L (25-165) Total Protein 5.2g/dL (6.4-8.4) Albumin 3.0g/dL (3.4-5.0) Microbiology 06/11/17 Urine Culture - Final, Complete Escherichia Coli Result Diagram: 06/13/17 0528 06/13/17 0528 Assessment & Plan Impression Postoperative day #1 status post right hip hemiarthroplasty secondary to a right displaced intracapsular femoral neck fracture Problems: Plan #1 physical therapy for gait training - weightbearing as tolerated with a walker #2 dressing changes tomorrow a.m. #3 continue to monitor H&H #4 discharge planning still likely to rehabilitation versus care home facility as the patient does live at home by herself #5 continue with DVT prophylaxis VTE Prophylaxis: Sub-Q Heparin (Unfractionated) Resuscitation Status: CPR: Attempt Resuscitation Theron Deluca DO Jun 13, 2017 11:05
[2017-06-13] MEDS: 0.9% Sodium Chloride 1,000 ML IV SCH ×2 (12:55→20:25)
[2017-06-13] MEDS: cefTRIAXone Inj 2,000 MG in Dextrose 5% Minibag Plus 50 ML IV SCH (16:46)
--- NOTE | 2017-06-13 20:04 | PCM.PNMED ---
Subjective Date of Service Jun 13, 2017 Subjective The patient feels fairly well 1 day postop after right hip surgery. She has no new complaints. She was concerned that the physical therapist stopped therapy today due to her rapid heart rate. He has remained completely asymptomatic. She has no chest pain, no diaphoresis no nausea, no other constitutional symptoms. Exam Vital Signs Vital Sign - Last Date Time Temp Pulse Resp B/P Pulse Ox O2 Delivery O2 Flow Rate FiO2 06/13/17 16:02 36.6 86 16 94/64 97 Room Air 06/12/17 17:55 2 Intake and Output 06/12/17 06/12/17 06/13/17 Cumulative From/Thru 15:00 23:00 07:00 06/11/17 23:25 - 06/12/17 18:55 Intake Total 1577 ml 707 ml 2629 ml Output Total 800 ml 1300 ml Balance 1577 ml -93 ml 1329 ml Intake Oral 100 ml 100 ml IV Total 1577 ml 607 ml 2529 ml Output Urine Total 600 ml 1100 ml Estimated Blood Loss 200 ml 200 ml # Bowel Movements 0 Exam General: Patient is in no apparent distress prior to surgery. HEENT: Head is atraumatic and normocephalic. Eyes: Pupils are equally round and reactive to light and accommodation. Extraocular muscles are intact. Sclera are white, anicteric. Subconjunctival mucosa is pink. Ears and nose are unremarkable. Oropharynx: There is no mucosal lesions, there is no thrush, there is no pharyngitis. Neck: Is supple, there are no nodes, or masses or tenderness. Chest: Is clear to auscultation and percussion. There are no rales, rhonchi, wheezes or rubs. Heart: Rate is tachycardic, rhythm is regular. There is no no new murmur, rub or gallop. Abdomen: Good bowel sounds are present. Abdomen is obese, soft, nontender, no organomegaly or masses were appreciated. Extremities: Are symmetrical and well perfused. There is no edema, there is no cellulitis, no rash. The right hip incision dressing is clean dry and intact. There is no strike through bleeding. Neurologic: There are no focal neurological deficits. Cranial nerves II through XII are intact. There are no sensory or motor deficits. Gait was not tested due to recent right hip fracture, and patient inability to get up due to tachycardia. Psychiatric: Patients mood is calm and shows no sign of agitation. Genital: Deferred Rectal: Deferred Lab and Diagnostics Result Diagram: 06/13/1752706/13/17527 Microbiology Name: ROGER REID Simona Age/Sex: 86/F Attend Dr: Lucas Barcenas Acct: [id number] Unit: [id number] Status: ADM IN Location: [facility] 1002-1 Re06/11/17 Disch: Specimen: [id number] Collected: 06/11/17 Status: COMP Req#: [id number] Received: 06/11/17 Source: RANDOM Sp Desc : Wil Dr: Sherman Langford DO Ordered: URINE CULT Procedure Result Verified Site Microbiology ARTHUR CULT URINE Final 06/13/17-828 Organism 1 ESCHERICHIA COLI U COLONY COUNT/QUANTITY >100,000 CFU/ml Cefazolin-predicts results for the oral agents, cefaclor,cefdinir, cefpodoximen, cefprozil, cefuroximne axetil, cephalexin and loracarbed when used for therapy of uncomplicated UTI's due to E. coli, K. pneumoniae, and Proteus mirabilis. Cefpodoxime, cefdinir and cefuroxime axetil may be tested individually because some isolates may be susceptible to these agents while testing resistant to cefazolin. (CLSI R722-D57 pg 53) 1. ESCHERICHIA COLI M.I.C Interp --------- ------ * AMOXICILLIN/CLAVULATE <=2 S * AMPICILLIN 4 S * CEFAZOLIN (CEPHALOSPORIN) UTI 4 S * CEFEPIME <=1 S * CEFTRIAXONE <=1 S * CEFUROXIME SODIUM 4 S * CIPROFLOXACIN <=0.25 S * ERTAPENEM <=0.5 S * GENTAMICIN <=1 S * IMIPENEM <=1 S * LEVOFLOXACIN <=0.12 S * NITROFURANTOIN <=16 S * TETRACYCLINE <=1 S * TOBRAMYCIN <=1 S * TRIMETHOPRIM/SULFAMETHOXAZOLE <=20 S X-Rays, CTs and MRIs PROCEDURE: X-RAY PELVIS W/LAT HIP (RT) ([id number]) IMPRESSION: Impacted right femoral neck fracture Assessment & Plan The patient is a 86 -year-old white female with history of HTN, hyperparathyroidism, osteoporosis, and OA who presented to the ED for right hip pain after a mechanical ground-level fall earlier today. Admitted for right femoral neck impacted fracture. # Right Femoral Neck Fracture, Acute, present on admission - As demonstrated on hip xray. - Orthopedics consulted and Dr. Theron Deluca that the patient to surgery yesterday and performed the following: "Right hip hemiarthroplasty". The patient is postop day #1 - Due to sinus tachycardia along with low blood pressure and give the patient 1000 mL cc bolus of normal saline and start normal saline at 100 mL an hour. Patient appears to be intravascularly depleted. - Pain control with Toradol, Percocet, and IV Dilaudid for severe pain preoperatively. Postoperatively pain control per orthopedic surgery. - DVT prophylaxis per orthopedic surgery. # Escherichia coli UTI, present on admission - UA positive for nitrites and trace LEs and 6-10 white blood cells per high- power field. - Ceftriaxone was started in the ED on 06/11, we will plan to continue this, day #3 # Essential HTN, present on admission - Mildly elevated on Admission, likely exacerbated due to pain - Will continue Lisinopril - We will restart her home atenolol 50 mg by mouth daily # Supraventricular tachycardia postoperatively today, active - This appears to be due to a component of dehydration and not being on her beta angela. Therefore have given a bolus of normal saline and started normal saline at 100 mL an hour and have restarted her atenolol - IV metoprolol given 1 time - After above measures heart is now sinus and in the 80s per information technology manager - Continue cardiac monitoring # Hyperparathyroidism, present on admission - Currently undergoing evaluation for a parathyroid nodule - Ca level mildly elevated on admission # Osteoporosis, present on admission - Was previously on bisphosphonate therapy, but has not on this currently # Osteoarthritis, present on admission - S/p bilateral TKR, pain management as above Tylenol prn fever/pain Bowel Regimen prn constipation Disposition: Patient's post operative course will determine her disposition. However, she is likely to be here for 48-72 hours and then be transferred to rehabilitation postoperatively. Dr. Willingham will follow in a.m. Pain Evaluation: Adequate Pain Control VTE Prophylaxis: Sub-Q Heparin (Unfractionated) VTE Mechanical Devices: Intermittant Pneumatic CD Resuscitation Status: CPR: Attempt Resuscitation Lucas Barcenas MD Jun 13, 2017 20:04
[2017-06-14] VITALS (10 sets, daily range): BP systolic 87–124; BP diastolic 58–82; PULSE 68–145; RESP 18–20; O2SAT 94–98
[2017-06-14] MEDS: Sodium Chloride LOK Flush 10 mL Syringe IV SCH ×4 (00:30→21:31)
--- NOTE | 2017-06-14 06:22 | PCM.PNORTH ---
Subjective Date of Service: Jun 14, 2017 Visit Information: Reason for Visit Rt Hip Fracture,Uti Surgery/Surgery Date Post-Op Day # Date of Admission: Jun 11, 2017 at 22:21 Hospital Day # Subjective On patient awake alert this morning allow position in bed with pillow between her knees. Not complaining of any pain at this time but is anxious regarding obtaining water so that she may have her blood drawn successfully. Discussed change of dressing this morning and accomplish this without incident. Postop General: No Complaints, No Shortness of Breath, No Chest Pain Pain Management: PO Objective Exam Objective Alert and oriented 3 and pleasant. Interoperative dressing is clean dry and intact. Interoperative dressing is changed to postop dressing with Silverlon remaining and Island dressing over this. Calf and thigh are soft and nontender. Toe wiggle and sensation are intact in right lower extremity distally SCDs are in place. No gait yet as of this time with formal therapy. Physical therapy recommends discharge to long term facility at this time Vital Signs and I/O Vital Sign - Last Date Time Temp Pulse Resp B/P Pulse Ox O2 Delivery O2 Flow Rate FiO2 06/14/17 05:03 37.5 77 18 121/74 94 Room Air 06/12/17 17:55 2 Intake and Output 06/13/17 06/13/17 06/14/17 Cumulative From/Thru 15:00 23:00 07:00 06/11/17 23:25 - 06/13/17 19:45 Intake Total 320 ml 3747 ml 6696 ml Output Total 750 ml 1100 ml 3150 ml Balance -430 ml 2647 ml 3546 ml Intake Oral 320 ml 2136 ml 2556 ml IV Total 1611 ml 4140 ml Output Urine Total 750 ml 1100 ml 2950 ml Estimated Blood Loss 200 ml # Bowel Movements 0 Lab & Micro Results Microbiology 06/11/17 Urine Culture - Final, Complete Escherichia Coli Result Diagram: 06/13/17 0528 06/13/17 0528 General Appearance: Alert, Oriented X3, Cooperative, No Acute Distress Extremities: No Compartment Syndrom Noted, Thigh & Calf Soft/Nontender Postop Sensory Motor: Distal Motor Intact, Movement in Toes, Distal Sensation Intact Activity: Activity per PT, Ambulate with PT (weightbearing as tolerated at the right lower extremity using front will walker.) Catheters: Urethral 2 Way Payton (Payton remains in place and should be discontinued as soon as patient achieves mobility for bedside commode) Assessment & Plan Impression Patient is an 86-year-old female who has suffered a right hip fracture with a right hip hemiarthroplasty performed on 06/12/2017. Patient fell here at the hospital while visiting another patient. She is very talkative and is helpful in her bed mobility. Problems: Plan Postoperative day #2 from right hip hemiarthroplasty performed on 06/12/[address] Theron Deluca. Weight-bear as tolerated on the right lower extremity using front-wheeled walker. Continue formal physical therapy for mobility, gait and safety. Continue by mouth pain medication using Percocet 5/325 or [place] 5/325. Consider Vistaril use if needed. Continue Lovenox 40 subcutaneous daily for 4 weeks postoperatively. Interoperative dressing is changed to postoperative dressing is morning and wound is in good condition. Payton remains in place secondary to poor out of bed mobility. Payton will be discontinued today if patient can achieve mobility for bedside commode. Nursing: Please prepare for patient to use bedside commode if mobility is achieved for this with physical therapy. Nursing: Please discontinue Payton catheter if patient is able to use bedside commode or bathroom.. Nursing: Please measure for and fit bilateral thigh-high RENZO hose today as ordered. Follow-up in 2 weeks at [facility] orthopedic clinic with Dr. Tehron Deluca. Follow-up in 2 weeks at [facility] orthopedic clinic with Dr. Theron Deluca with AP pelvis and right cross table lateral hip x-rays on arrival. Physical therapy recommends discharge to long term facility at this time. Orthopedics thanks hospitalist service for their help with the medical management of this patient. Anticipate discharge to long term facility by hospitalist service on or before postop day #3, 06/15/2017 secondary to poor gait, mobility and safety issues attenuate with discharge to home with home health. VTE Prophylaxis: Sub-Q Enoxaparin (Lovenox 40 mg subcutaneous daily 4 weeks postop for DVT prophylaxis.) Resuscitation Status: CPR: Attempt Resuscitation Vishnu Mcfarlane PA-C Jun 14, 2017 06:22 Vishnu Mcfarlane PA-C Jun 14, 2017 06:22
[2017-06-14] MEDS: 0.9% Sodium Chloride 1,000 ML IV SCH ×3 (06:25→20:06)
[2017-06-14 06:35] LABS: BASOPHILS % (AUTO) 0.1 % (0-3); EOSINOPHILS % (AUTO) 0.6 % (0-5); Mean Corpuscular Hemoglobin 30.4 pg (27.0-35.0); Mean Corpuscular Volume 95.7 fL (81-100); NEUTROPHILS % (AUTO) 69.9 % (40-74); Platelet Count 156 bil/L (150-400)
[2017-06-14 06:45] LABS: Magnesium 1.9 mg/dL (1.6-2.6)
[2017-06-14] MEDS: Senna-Docusate 8.6-50 mg Tablet PO SCH ×2 (08:22→20:06)
[2017-06-14] MEDS: hydrOXYzine Pamoate 25 mg Capsule PO PRN ×4 (08:23→23:52)
[2017-06-14] MEDS ORDERED: Ketorolac 15 mg/mL Inj IVPUSH PRN (10:05)
--- NOTE | 2017-06-14 13:57 | PCM.PNMED ---
Subjective Date of Service Jun 14, 2017 Subjective Patient reports generalized weakness when working with physical therapy today. Says her heart rate was elevated but only during the physical therapy sessions. Denies any chest pain. Denies feeling palpitations. Exam Vital Signs Vital Sign - Last Date Time Temp Pulse Resp B/P Pulse Ox O2 Delivery O2 Flow Rate FiO2 06/14/17 11:25 130 06/14/17 08:34 37.0 18 124/82 96 Room Air 06/12/17 17:55 2 Intake and Output 06/13/17 06/13/17 06/14/17 Cumulative From/Thru 15:00 23:00 07:00 06/11/17 23:25 - 06/14/17 06:31 Intake Total 320 ml 3747 ml 400 ml 7096 ml Output Total 750 ml 1100 ml 1100 ml 4250 ml Balance -430 ml 2647 ml -700 ml 2846 ml Intake Oral 320 ml 2136 ml 400 ml 2956 ml IV Total 1611 ml 4140 ml Output Urine Total 750 ml 1100 ml 1100 ml 4050 ml Estimated Blood Loss 200 ml # Bowel Movements 0 Exam Gen: NAD, AOx3. Lying in bed. HEENT: NCAT, PERRLA, EOMI, MMM, sclera anicteric. Neck: Soft, supple, symmetrical, no thyromegaly/JVD/LAD. Resp: CTAB, no R/R/W. CV: Not tachycardic on exam. nl S1/S2, no M/R/G, Abd: Soft, (+) BS, no guarding/rebound/organomegaly. Ext: +PP, -edema Skin: warm/dry/intact Neuro/Psych: No focal deficits, CN II-XII grossly intact. AAOx3, cooperative , appropriate mood/affect. IVs and Medications Medications Reviewed: Medications were reviewed in detail Lab and Diagnostics Result Diagram: 06/14/17 0606/14/17 06 Microbiology Name: ROGER REID Age/Sex: 86/F Attend Dr: Lucas Barcenas Acct: [id number] Unit: [id number] Status: ADM IN Location: [facility] 1002-1 Re06/11/17 Disch: Specimen: [id number] Collected: 06/11/17 Status: COMP Re#: [id number] Received: 06/11/17 Source: RANDOM Sp Desc : Subm Dr: Sherman Langford DO Ordered: URINE CULT Procedure Result Verified Site Microbiology ARTHUR CULT URINE Final 06/13/17 Organism 1 ESCHERICHIA COLI U COLONY COUNT/QUANTITY >100,000 CFU/ml Cefazolin-predicts results for the oral agents, cefaclor,cefdinir, cefpodoximen, cefprozil, cefuroximne axetil, cephalexin and loracarbed when used for therapy of uncomplicated UTI's due to E. coli, K. pneumoniae, and Proteus mirabilis. Cefpodoxime, cefdinir and cefuroxime axetil may be tested individually because some isolates may be susceptible to these agents while testing resistant to cefazolin. (CLSI [id number] pg 53) 1. ESCHERICHIA COLI M.I.C Interp --------- ------ * AMOXICILLIN/CLAVULATE <=2 S * AMPICILLIN 4 S * CEFAZOLIN (CEPHALOSPORIN) UTI 4 S * CEFEPIME <=1 S * CEFTRIAXONE <=1 S * CEFUROXIME SODIUM 4 S * CIPROFLOXACIN <=0.25 S * ERTAPENEM <=0.5 S * GENTAMICIN <=1 S * IMIPENEM <=1 S * LEVOFLOXACIN <=0.12 S * NITROFURANTOIN <=16 S * TETRACYCLINE <=1 S * TOBRAMYCIN <=1 S * TRIMETHOPRIM/SULFAMETHOXAZOLE <=20 S X-Rays, CTs and MRIs PROCEDURE: X-RAY PELVIS W/LAT HIP (RT) ([id number]) IMPRESSION: Impacted right femoral neck fracture Assessment & Plan The patient is a 86 -year-old white female with history of HTN, hyperparathyroidism, osteoporosis, and OA who presented to the ED for right hip pain after a mechanical ground-level fall earlier today. Admitted for right femoral neck impacted fracture s/p right hip hemiarthroplasty performed on 06/[address] Theron Deluca # Right Femoral Neck Fracture, Acute, present on admission - As demonstrated on hip xray. - Orthopedics consulted, s/p right hip hemiarthroplasty performed on 06/12/[address] Theron Deluca postop day #2 - Due to sinus tachycardia along with low blood pressure, was given 1000 mL cc bolus of normal saline and started normal saline at 100 mL an hour. Patient appears to be intravascularly depleted. - Pain control with Toradol, Percocet, and IV Dilaudid for severe pain preoperatively. Postoperatively pain control per orthopedic surgery. - Physical therapy recommends discharge to half-way facility at this time Surgery Discharge Instructions- Weight-bear as tolerated on the right lower extremity using front-wheeled walker. Continue by mouth pain medication using Percocet 5/325 or [place] 5/325. Consider Vistaril use if needed. Continue Lovenox 40 subcutaneous daily for 4 weeks postoperatively. Interoperative dressing is changed to postoperative dressing is morning and wound is in good condition. Payton remains in place secondary to poor out of bed mobility. Payton will be discontinued today if patient can achieve mobility for bedside commode. # Escherichia coli UTI, present on admission - UA positive for nitrites and trace LEs and 6-10 white blood cells per high- power field. - Ceftriaxone was started in the ED on 06/11, we will plan to continue this, day #4 - Change to PO Abx upon discharge. # Essential HTN, present on admission - Mildly elevated on Admission, likely exacerbated due to pain - Will continue Lisinopril - We will restart her home atenolol 25 mg by mouth daily, pt does not want dose/ med changed. - She should follow-up with her PCP continues to have episodes of tachycardia. Consider change to metoprolol # Supraventricular tachycardia postoperatively today, active - This appears to be due to a component of dehydration and not being on her beta angela. Therefore have given a bolus of normal saline and started normal saline at 100 mL an hour and have restarted her atenolol. - After above measures heart is now sinus and in the 80s per front desk monitor - Continue cardiac monitoring # Hyperparathyroidism, present on admission - Currently undergoing evaluation for a parathyroid nodule - Ca level mildly elevated on admission # Osteoporosis, present on admission - Was previously on bisphosphonate therapy, but has not on this currently # Osteoarthritis, present on admission - S/p bilateral TKR, pain management as above Tylenol prn fever/pain Bowel Regimen prn constipation, No BM since admit, +BS, passing gas. Disposition: anticipate discharge to half-way facility on postop day #3 , 06/15/2017 secondary to poor gait, mobility and safety issues -Follow-up in [address] [facility] orthopedic clinic with Dr. Theron Deluca. -Follow-up in [address] [facility] orthopedic clinic with Dr. Theron Deluca with AP pelvis and right cross table lateral hip x-rays on arrival. -For UTI- complete 7 day course of antibiotics. Pain Evaluation: Adequate Pain Control VTE Prophylaxis: Sub-Q Enoxaparin (Lovenox 40 mg subcutaneous daily 4 weeks postop for DVT prophylaxis.) VTE Mechanical Devices: Intermittant Pneumatic CD Resuscitation Status: CPR: Attempt Resuscitation Satish Willingham MD Jun 14, 2017 13:57
[2017-06-14] MEDS: oxyCODONE-Acetamin 5-325 mg Tablet PO PRN ×3 (14:36→23:52)
[2017-06-14] MEDS: cefTRIAXone Inj 2,000 MG in Dextrose 5% Minibag Plus 50 ML IV SCH (16:47)
[2017-06-14] MEDS ORDERED: 0.9% Sodium Chloride 250 ML IV ONE (18:00)
[2017-06-15] VITALS (9 sets, daily range): BP systolic 85–107; BP diastolic 56–71; PULSE 71–111; RESP 16–18; O2SAT 91–98
[2017-06-15] MEDS: 0.9% Sodium Chloride 1,000 ML IV SCH ×5 (02:25→22:25)
[2017-06-15 07:45] LABS: BASOPHILS % (AUTO) 0.3 % (0-3); EOSINOPHILS % (AUTO) 2.4 % (0-5); MONOCYTES % (AUTO) 17.5 % (4-12); Mean Corpuscular Hemoglobin 29.5 pg (27.0-35.0); Mean Corpuscular Volume 92.7 fL (81-100); Platelet Count 156 bil/L (150-400)
--- NOTE | 2017-06-15 08:25 | PCM.PNORTH ---
Subjective Date of Service: Jun 15, 2017 Visit Information: Reason for Visit Rt Hip Fracture,Uti Surgery/Surgery Date Post-Op Day # 3 Date of Admission: Jun 11, 2017 at 22:21 Hospital Day # Subjective Patient states she began having pain in her shoulders last night. She describes it as a dull ache with sharp stabbing pains with movement. She states her right shoulder is worse than her left and predicts that it is because she fell on her right side. She states it is improving slowly. She also expresses concerns regarding her anders. She has had urinary incontinence and states she is not able to get up out of the bed right now and will let herself she does not have a catheter. Postop General: No Complaints, No Shortness of Breath, No Chest Pain Pain Management: PO Objective Exam Objective Sitting up in bed Vital Signs and I/O Vital Sign - Last Date Time Temp Pulse Resp B/P Pulse Ox O2 Delivery O2 Flow Rate FiO2 06/15/17 04:43 36.7 71 18 97/64 96 Room Air 06/12/17 17:55 2 Intake and Output 06/14/17 06/14/17 06/15/17 Cumulative From/Thru 15:00 23:00 07:00 06/11/17 23:25 - 06/15/17 06:15 Intake Total 1342 ml 1345 ml 9783 ml Output Total 1500 ml 1100 ml 6850 ml Balance -158 ml 245 ml 2933 ml Intake Oral 1037 ml 300 ml 4293 ml IV Total 305 ml 1045 ml 5490 ml Output Urine Total 1500 ml 1100 ml 6650 ml Estimated Blood Loss 200 ml # Bowel Movements 0 0 Lab & Micro Results Laboratory Tests Test 06/15/17 07:04 White Blood Count 12.1th/mm3 (3.8-10.1) Red Blood Count 2.75mil/mm3 (3.90-5.20) Hemoglobin 8.1g/dL (12.0-15.6) Hematocrit 25.5% (35.0-46.0) Mean Corpuscular Volume 92.7fL (81-100) Mean Corpuscular Hemoglobin 29.5pg (27.0-35.0) Mean Corpuscular Hemoglobin Concent 31.8% (32.0-37.0) Red Cell Distribution Width 13.3% (12.3-15.4) Platelet Count 156bil/L (150-400) Neutrophils (%) (Auto) 67.0% (40-74) Lymphocytes (%) (Auto) 12.3% (14-46) Monocytes (%) (Auto) 17.5% (4-12) Eosinophils (%) (Auto) 2.4% (0-5) Basophils (%) (Auto) 0.3% (0-3) Sodium Level 134mEq/L (134-144) Potassium Level 5.2mEq/L (3.5-5.2) Chloride Level 104mEq/L (97-108) Carbon Dioxide Level 19mmol/L (18-29) Blood Urea Nitrogen 25mg/dL (8-27) Creatinine 0.99mg/dL (0.57-1.00) Estimat Glomerular Filtration Rate 76mL/min (>59) Glucose Level 99mg/dL (60-99) Calcium Level 8.7mg/dL (8.5-10.1) Microbiology 06/11/17 Urine Culture - Final, Complete Escherichia Coli Result Diagram: 06/15/17 0704 06/15/17 0704 General Appearance: Alert, Oriented X3, Cooperative, No Acute Distress Extremities: Distal Pulses Palpable, No Compartment Syndrom Noted, Tenderness/ Swelling Noted Postop Sensory Motor: Distal Motor Intact, Movement in Toes, Distal Sensation Intact, NVI Distally Activity: Activity per PT, Ambulate with PT (weightbearing as tolerated at the right lower extremity using front will walker.) Catheters: Urethral 2 Way Anders (Anders remains in place and should be discontinued as soon as patient achieves mobility for bedside commode) Assessment & Plan Impression POD#3 right hip hemiarthroplasty Problems: Plan Postoperative day #3 from right hip hemiarthroplasty performed on 06/12/[address] Theron Deluca. Weight-bear as tolerated on the right lower extremity using front-wheeled walker. Continue formal physical therapy for mobility, gait and safety. Continue by mouth pain medication using Percocet 5/325 or [place] 5/325. Consider Vistaril use if needed. Continue Lovenox 40 subcutaneous daily for 4 weeks postoperatively. Change dressing as needed. Anders remains in place secondary to poor out of bed mobility. Anders will be discontinued today if patient can achieve mobility for bedside commode. Follow-up in 2 weeks at [facility] orthopedic clinic with Dr. Theron Deluca. Follow-up in 2 weeks at [facility] orthopedic clinic with Dr. Theron Deluca with AP pelvis and right cross table lateral hip x-rays on arrival. Physical therapy recommends discharge to alf facility at this time. Orthopedics thanks hospitalist service for their help with the medical management of this patient and will sign off at this time. Anticipate discharge to alf facility by hospitalist service on or before postop day #3, 06/15/2017 secondary to poor gait, mobility and safety issues attenuate with discharge to home with home health. VTE Prophylaxis: Sub-Q Enoxaparin (Lovenox 40 mg subcutaneous daily 4 weeks postop for DVT prophylaxis.) Resuscitation Status: CPR: Attempt Resuscitation Batsheva Crawford PA-C Jun 15, 2017 08:25
[2017-06-15] MEDS: Sodium Chloride LOK Flush 10 mL Syringe IV SCH ×2 (08:30→16:23)
[2017-06-15] MEDS: Senna-Docusate 8.6-50 mg Tablet PO SCH ×2 (08:41→22:47)
--- NOTE | 2017-06-15 11:13 | PCM.PNMED ---
Subjective Date of Service Jun 15, 2017 Subjective Patient sustained is well controlled. Overnight had episodes of tachycardia cardia which were identified as SVT per EKG. Patient claims not to have any chest pain or palpitations during these episodes. Exam Vital Signs Vital Sign - Last Date Time Temp Pulse Resp B/P Pulse Ox O2 Delivery O2 Flow Rate FiO2 06/15/17 10:32 82 06/15/17 04:43 36.7 18 97/64 96 Room Air 06/12/17 17:55 2 Intake and Output 06/14/17 06/14/17 06/15/17 Cumulative From/Thru 15:00 23:00 07:00 06/11/17 23:25 - 06/15/17 06:15 Intake Total 1342 ml 1345 ml 9783 ml Output Total 1500 ml 1100 ml 6850 ml Balance -158 ml 245 ml 2933 ml Intake Oral 1037 ml 300 ml 4293 ml IV Total 305 ml 1045 ml 5490 ml Output Urine Total 1500 ml 1100 ml 6650 ml Estimated Blood Loss 200 ml # Bowel Movements 0 0 Exam Gen: NAD, AOx3. Lying in bed. HEENT: NCAT, PERRLA, EOMI, MMM, sclera anicteric. Neck: Soft, supple, symmetrical, no thyromegaly/JVD/LAD. Resp: CTAB, no R/R/W. CV: Not tachycardic on exam. nl S1/S2, no M/R/G, Abd: Soft, (+) BS, no guarding/rebound/organomegaly. Ext: +PP, -edema Skin: warm/dry/intact Neuro/Psych: No focal deficits, CN II-XII grossly intact. AAOx3, cooperative , appropriate mood/affect. IVs and Medications Medications Reviewed: Medications were reviewed in detail Lab and Diagnostics Result Diagram: 06/15/1770306/15/17 0704 Microbiology Name: ROGER REID Age/Sex: 86/F Attend Dr: Lucas Barcenas Acct: [id number] Unit: [id number] Status: ADM IN Location: [facility] 1002-1 Re06/11/17 Disch: Specimen: [id number] Collected: 06/11/17 Status: LINO Re#: [id number] Received: 06/11/17 Source: [facility]OM Sp Desc : Subm Dr: Sherman Langford DO Ordered: URINE CULT Procedure Result Verified Site Microbiology ARTHUR CULT URINE Final 06/13/17 Organism 1 ESCHERICHIA COLI U COLONY COUNT/QUANTITY >100,000 CFU/ml Cefazolin-predicts results for the oral agents, cefaclor,cefdinir, cefpodoximen, cefprozil, cefuroximne axetil, cephalexin and loracarbed when used for therapy of uncomplicated UTI's due to E. coli, K. pneumoniae, and Proteus mirabilis. Cefpodoxime, cefdinir and cefuroxime axetil may be tested individually because some isolates may be susceptible to these agents while testing resistant to cefazolin. (CLSI [id number] pg 53) 1. ESCHERICHIA COLI M.I.C Interp --------- ------ * AMOXICILLIN/CLAVULATE <=2 S * AMPICILLIN 4 S * CEFAZOLIN (CEPHALOSPORIN) UTI 4 S * CEFEPIME <=1 S * CEFTRIAXONE <=1 S * CEFUROXIME SODIUM 4 S * CIPROFLOXACIN <=0.25 S * ERTAPENEM <=0.5 S * GENTAMICIN <=1 S * IMIPENEM <=1 S * LEVOFLOXACIN <=0.12 S * NITROFURANTOIN <=16 S * TETRACYCLINE <=1 S * TOBRAMYCIN <=1 S * TRIMETHOPRIM/SULFAMETHOXAZOLE <=20 S X-Rays, CTs and MRIs PROCEDURE: X-RAY PELVIS W/LAT HIP (RT) ([id number]) IMPRESSION: Impacted right femoral neck fracture 12-lead ECG 06/15- EKG- Sinus Rythm 06/15- EKG- SVT Assessment & Plan The patient is a 86 -year-old white female with history of HTN, hyperparathyroidism, osteoporosis, and OA who presented to the ED for right hip pain after a mechanical ground-level fall earlier today. Admitted for right femoral neck impacted fracture s/p right hip hemiarthroplasty performed on 06/[address] Theron Deluca # Right Femoral Neck Fracture, Acute, present on admission - As demonstrated on hip xray. - Orthopedics consulted, s/p right hip hemiarthroplasty performed on 06/12/[address] Theron Deluca postop day #3 - Due to sinus tachycardia along with low blood pressure, was given 1000 mL cc bolus of normal saline and started normal saline at 100 mL an hour. Pt appeared intravascularly depleted. - Pain control with Toradol, Percocet, and IV Dilaudid for severe pain preoperatively. Postoperatively pain control per orthopedic surgery. - Physical therapy [facility] at [facility] time Surgery Discharge Instructions- Weight-bear as tolerated on the right lower extremity using front-wheeled walker. Continue by mouth pain medication using Percocet 5/325 or [place] 5/325. Consider Vistaril use if needed. Continue Lovenox 40 subcutaneous daily for 4 weeks postoperatively. Interoperative dressing is changed to postoperative dressing is morning and wound is in good condition. Payton remains in place secondary to poor out of bed mobility. Payton will be discontinued today if patient can achieve mobility for bedside commode. # Supraventricular tachycardia postoperatively today, active - This appears to be due to a component of dehydration and not being on her beta angela. Therefore have given a bolus of normal saline and started normal saline at 100 mL an hour and have restarted her atenolol. - Continue cardiac monitoring - Patient has had multiple episodes of SVT confirmed by EKG. Patient will spontaneously convert to sinus rhythm. Patient denies any symptoms during these episodes. - Will start patient on metoprolol twice a day while monitoring for hypotension. - Will get echocardiogram -Discussed case with cardiology over phone, may need consult pending results of echocardiogram and rhythm review. # Escherichia coli UTI, present on admission - UA positive for nitrites and trace LEs and 6-10 white blood cells per high- power field. - Ceftriaxone was started in the ED on 06/11, we will plan to continue this, day #4 - Change to PO Abx upon discharge. # Essential HTN, present on admission - Mildly elevated on Admission, likely exacerbated due to pain - Will continue Lisinopril - Initially restarted her home atenolol 25 mg by mouth daily, pt does not want dose/med changed. - Change to metoprolol 12.5 twice a day due to SVT. # Hyperparathyroidism, present on admission, - Currently undergoing evaluation for a parathyroid nodule - Ca level mildly elevated on admission, currently within normal limits. # Osteoporosis, present on admission - Was previously on bisphosphonate therapy, not currently taking. # Osteoarthritis, present on admission - S/p bilateral TKR, pain management as above Tylenol prn fever/pain Bowel Regimen prn constipation, No BM since admit, +BS, passing gas. Disposition: [facility] on postop day #3 , 06/15/2017 secondary to poor gait, mobility and safety issues -Follow-up in 2 weeks at [facility] orthopedic clinic with Dr. Theron Deluca. -Follow-up in 2 weeks at [facility] orthopedic clinic with Dr. Theron Deluca with AP pelvis and right cross table lateral hip x-rays on arrival. -For UTI- complete 7 day course of antibiotics. Pain Evaluation: Adequate Pain Control VTE Prophylaxis: Sub-Q Enoxaparin (Lovenox 40 mg subcutaneous daily 4 weeks postop for DVT prophylaxis.) VTE Mechanical Devices: Intermittant Pneumatic CD Resuscitation Status: CPR: Attempt Resuscitation Satish Willingham MD Jun 15, 2017 11:13
[2017-06-15] MEDS: Cefdinir 25 mg/mL 60 mL Suspension PO SCH (14:28)
--- NOTE | 2017-06-15 16:38 | PCM.CHPCAR ---
Consult Subjective Date of service Jun 15, 2017 Date of admit Jun 11, 2017 at 22:21 Provider Requesting Consult Primary Care Physician Primary Care Physician: Solange Ma Chief Complaint SVT History of Present Illness 86-year-old woman history of hypertension admitted on 06/11/2017 for right hip fracture. Patient states that she was visiting her friend on the third floor of [facility] when she fell and broke her hip. She was evaluated and underwent right hip arthroplasty that she tolerated well. During postop course, she was noted to have paroxysmal supraventricular tachycardia with rates up to 160s. She feels good overall from cardiac standpoint and denies any chest pain, heart racing sensations, shortness of breath, lightheadedness, or syncope. Review of Systems Review of Systems Per history of present illness and otherwise unremarkable PMH Past Medical History # Hypertension Scheduled Atenolol (Atenolol) 25 Mg Tablet 25 MG PO DAILY (Reported) Atorvastatin (Lipitor) 20 Mg Tablet 20 MG PO DAILY (Reported) Hydrochlorothiazide (Hydrochlorothiazide) 12.5 Mg Capsule 12.5 MG PO DAILY Lisinopril (Lisinopril) 10 Mg Tablet 10 MG PO DAILY Oxybutynin Chloride (Oxybutynin Chloride) 5 Mg Tablet 5 MG PO BID (Reported) Discontinued Medications Atenolol-Expunged Drug, Do Not Renew! (Atenolol-Expunged Drug, Do Not Renew!) 25 Mg Tablet 25 MG PO DAILY (Reported) Celecoxib-Expunged Drug, Do Not Renew! (Celecoxib-Expunged Drug, Do Not Renew!) 200 Mg Capsule 200 MG PO DAILY (Reported) Lisinopril-Expunged Drug, Do Not Renew! (Lisinopril-Expunged Drug, Do Not Renew! ) 10 Mg Tablet 10 MG PO DAILY (Reported) Oxybutynin-Expunged Drug, Do Not Renew! (Ditropan-Expunged Drug, Do Not Renew!) 5 Mg Tablet 5 MG PO DAILY (Reported) Current Inpatient Medications Current Medications Lisinopril 10 mg DAILY PO Last administered on 06/14/17t 08:22; Admin Dose 10 MG ; Start 06/14/17 at 08:30; Stop 06/14/17 at 17:58; Status DC Oxybutynin Chloride 5 mg DAILY PO; Start 06/14/17 at 08:30; Stop 06/14/17 at 08: 30; Status DC Oxybutynin Chloride 5 mg BID PO Last administered on 06/15/17 08:42; Admin Dose 5 MG; Start 06/13/17 at 20:00 Oxycodone/ Acetaminophen 1 tab Q4H PRN PO Last administered on 06/14/17 23:52 ; Admin Dose 1 TAB; Start 06/14/17 at 06:00 Ketorolac Tromethamine 15 mg Q6H PRN IVPUSH; Start 06/14/17 at 10:05; Stop at 23:21 Metoprolol Tartrate 25 mg BID PO; Start 06/14/17 at 20:30; Stop 06/14/17 at 20: 30; Status DC Atenolol 25 mg DAILY PO; Start 06/15/17 at 08:30; Stop 06/15/17 at 08:30; Status DC Metoprolol Tartrate 12.5 mg 12.5 mg Q6H PRN PO; Start 06/14/17 at 15:45; Stop 06/15/17 at 10:57; Status DC Sodium Chloride 1,000 ml @ 100 mls/hr Q10H IV Last administered on 06/15/17 16 :23; Admin Dose 100 MLS/HR; Start 06/14/17 at 18:00 Atenolol 25 mg DAILY PO; Start 06/14/17 at 21:00; Stop 06/14/17 at 21:00; Status DC Metoprolol Tartrate 12.5 mg BID PO Last administered on 06/15/17 11:21; Admin Dose 12.5 MG; Start 06/15/17 at 10:55 Cefdinir 300 mg DAILY PO Last administered on 06/15/17 14:28; Admin Dose 300 MG ; Start 06/15/17 at 12:30 Allergies: Coded Allergies: No Known Allergies (Unverified , 02/20/16) Family History Family History Mother at the age of 28 Social History Hx Alcohol Use: YesAlcoholic Drinks Per Day: Occassionally 1-2 weekHx Substance Use: No Smoking Status: Former Smoker (Quit in ) Living Arrangement: with Family Exam Vital Signs Vital Sign - Last Date Time Temp Pulse Resp B/P Pulse Ox O2 Delivery O2 Flow Rate FiO2 06/15/17 15:30 37.1 111 18 99/66 93 Room Air 06/12/17 17:55 2 Intake and Output 06/14/17 06/14/17 06/15/17 Cumulative From/Thru 15:00 23:00 07:00 06/11/17 23:25 - 06/15/17 06:15 Intake Total 1342 ml 1345 ml 9783 ml Output Total 1500 ml 1100 ml 6850 ml Balance -158 ml 245 ml 2933 ml Intake Oral 1037 ml 300 ml 4293 ml IV Total 305 ml 1045 ml 5490 ml Output Urine Total 1500 ml 1100 ml 6650 ml Estimated Blood Loss 200 ml # Bowel Movements 0 0 Objective General appearance: No apparent distress, elderly, pleasant, cooperative HEET: Normocephalic atraumatic, no scleral icterus, tongue midline, mucous membranes moist Neck: supple Cardiovascular: RRR, normal S1 and normal S2, no murmurs/ rubs/gallops, PMI nondisplaced, no JVD, no peripheral edema Respiratory: Good aeration, CTAB Abdomen: Soft, nontender, nondistended, + bowel sounds Neuro: Alert, tongue midline, moving both arms symmetrically Psych: appropriate affect Skin: no rashes on face, neck, and lower extremities Lab and Diagnostics Result Diagram: 06/15/17 0704 06/15/17 0704 X-Rays, CTs and MRIs Echo today: Technically difficult images limit valve and myocardial wall visualization. The left ventricle is grossly normal size. The left ventricular ejection fraction is grossly normal. The right ventricle grossly appears normal in size with probable normal systolic function. No significant valvular abnormalities. No prior echo available for comparison. Assessment & Plan Assessment 86-year-old woman history of hypertension admitted on 06/11/2017 for right hip fracture. # Paroxysmal SVT: Patient having paroxysmal of supraventricular tachycardia. Suspect the SVT is atrial tachycardia but AVRT also possible. She is asymptomatic during these episodes. Thankfully, her LV function is grossly normal and there are no significant valvular abnormalities. Due to her low blood pressure, up titration of metoprolol has been a challenge. Her SVT is coming in the way of her to do rehabilitation. I would recommend short-term course of amiodarone to maintain sinus rhythm and get her through rehabilitation. Recommendations as below: - Start amiodarone by mouth 400 mg twice a day for one week and then 400 mg daily for one week and then 200 mg daily for one month and then stop. Thyroid function was normal on admission. - Recommended follow-up with cardiology in 3 months for a monitor to assess SVT # Hypertension: Patient is having low blood pressure in the hospital. Agree with holding patient's home dose DANI inhibitor and re-starting it as outpatient when blood pressure allows. # Right hip fracture: Educated the patient of importance of doing rehabilitation. Defer management to primary team. Thank you for the interesting consultation. Cardiology will sign off at this time Pain Evaluation: Adequate Pain Control VTE Prophylaxis: Sub-Q Enoxaparin (Lovenox 40 mg subcutaneous daily 4 weeks postop for DVT prophylaxis.) VTE Mechanical Devices: Intermittant Pneumatic CD Resuscitation Status: CPR: Attempt Resuscitation Eva Stewart MD Jun 15, 2017 16:38
[2017-06-16] MEDS: Sodium Chloride LOK Flush 10 mL Syringe IV SCH ×3 (00:30→16:58)
[2017-06-16] MEDS: 0.9% Sodium Chloride 1,000 ML IV SCH ×3 (02:16→09:47)
[2017-06-16 05:31] VITALS: BP 90/59; PULSE 75; RESP 18; O2SAT 96
[2017-06-16 06:19] LABS: BASOPHILS % (AUTO) 0.5 % (0-3); EOSINOPHILS % (AUTO) 5.3 % (0-5); MONOCYTES % (AUTO) 18.1 % (4-12); Mean Corpuscular Hemoglobin 30.4 pg (27.0-35.0); NEUTROPHILS % (AUTO) 59.9 % (40-74); Platelet Count 199 bil/L (150-400)
[2017-06-16] MEDS: Senna-Docusate 8.6-50 mg Tablet PO SCH ×2 (08:22→20:43)
[2017-06-16 08:23] VITALS: BP 109/73; PULSE 73
[2017-06-16 09:29] VITALS: BP 113/62; PULSE 71; RESP 18; O2SAT 98
[2017-06-16] MEDS: Cefdinir 25 mg/mL 60 mL Suspension PO SCH (09:45)
[2017-06-16 10:42] VITALS: PULSE 68
--- NOTE | 2017-06-16 11:06 | DRSVH ---
[facility] [address] [place] [address] Echocardiogram Report Name: ROGER REID RStudy Emeterio e: 06/15/2017 Height: 63 in Hospital Exam Location: [facility] Weight: 222 lb Gender: Female BSA: 2.0 m2 : 1930 Age: 86 yrs BP: 97/64 mmHg Reason For Study: SVT Ordering Physician: Performed By: Vianney Moreno Referring Physician: EMIL STEWART Interpretation Summary Technically difficult images limit valve and myocardial wall visualization. The left ventricle is grossly normal size. The left ventricular ejection fraction is grossly normal. The right ventricle grossly appears normal in size with probable normal systolic function. No significant valvular abnormalities. No prior echo available for comparison. Procedure: A two-dimensional transthoracic echocardiogram with color flow and Doppler was performed. The study quality was technically difficult. There is no prior echocardiogram noted for this patient. A contrast injection of Definity was performed to improve assessment of LV function. The heart rate ranged between 86-172 bpm during the study. Left Ventricle: The left ventricle is grossly normal size. The left ventricular ejection fraction is grossly normal. Diastolic function could not be accurately assessed due to tachycardia. Right Ventricle: The right ventricle grossly appears normal in size with probable normal systolic function. Atria: The left atrium is severely dilated. The right atrium is moderately dilated. The interatrial septum is intact with no evidence for an atrial septal defect. Mitral Valve: The mitral valve is normal in structure and function. There is trace mitral regurgitation. Aortic Valve: The aortic valve is not well visualized. There is no aortic valve stenosis. No aortic regurgitation is present. Tricuspid Valve: The tricuspid valve leaflets are thin and pliable. There is trace tricuspid regurgitation. The right ventricular systolic pressure is estimated at 25 mmHg assuming a right atrial pressure of 3 mm Hg. Pulmonic Valve: The pulmonic valve is not well visualized. Great Vessels: The aortic root is normal size. The ascending aorta could not be visualized. The IVC is of normal diameter and collapses greater than 50% with a sniff. This suggests a low right atrial pressure of 3 mm Hg. Pericardium/ Pleura There is no pericardial effusion. There is no pleural effusion. MMode/2D Measurements & Calculations EPSS: 1.9 cm RA long axis LVOT diam LA A2 area: 31.3 cm : 2.2 cm LA A4 area: 21.5 cm LA length (vol): 5.8 cm RA area: 15.4 cm LA vol: 98.9 ml RA vol: 42.2 ml LA vol index RA : 20.9 ml/m2 : 48.9 ml/m2 LVAd ap4 LVAd ap2: 25.0 cm : 19.1 cm LVLd ap2: 6.8 cm EF(MOD-bp): 52.7 % LVAs ap4 EDV(MOD-sp2): 74.9 ml : 14.6 cm EDV(sp2-el): 78.4 ml LVLs ap4: 5.3 cm LVAs ap2: 14.5 cm LVLs ap2: 5.3 cm ESV(MOD-sp2): 33.0 ml ESV(sp2-el): 33.5 ml EF(MOD-sp2): 55.9 % Doppler Measurements & Calculations Ao V2 max: 159.1 cm/sec TR max gama Ao V2 mean LV V1 max PG Ao max P.1 mmHg : 237.4 cm/sec : 116.9 cm/sec Ao mean P.0 mmHg TR max PG Ao V2 VTI: 20.5 cmLV V1 VTI LVOT Max Gama : 22.5 mmHg : 18.6 cm : 124.1 cm/sec SHOLA(V,D): 2.9 cm2 SHOLA(I,D): 3.3 cm sev ratio: 0.91 SHOLA indexed to BSA (cm^2/m^2): 1.6 Reading Physician:09:05 AM
--- NOTE | 2017-06-16 11:49 | PCM.PNMED ---
Subjective Date of Service Jun 16, 2017 Subjective Patient had no overnight events. Has not had any episodes of tachycardia overnight since getting amiodarone per monitor. Patient still denies any symptoms of palpitations or chest discomfort. Exam Vital Signs Vital Sign - Last Date Time Temp Pulse Resp B/P Pulse Ox O2 Delivery O2 Flow Rate FiO2 06/16/17 10:42 68 06/16/17 09:29 36.8 18 113/62 98 Room Air 06/12/17 17:55 2 Intake and Output 06/15/17 06/15/17 06/16/17 Cumulative From/Thru 15:00 23:00 07:00 06/11/17 23:25 - 06/16/17 06:40 Intake Total 668 ml 837 ml 2204 ml 93478 ml Output Total 1900 ml 2500 ml 13188 ml Balance 668 ml -1063 ml -296 ml 2242 ml Intake Oral 837 ml 600 ml 5730 ml IV Total 668 ml 1604 ml 7762 ml Output Urine Total 1900 ml 2500 ml 75704 ml Estimated Blood Loss 200 ml # Bowel Movements 0 0 Exam Exam Gen: NAD, AOx3. Lying in bed. HEENT: NCAT, PERRLA, EOMI, MMM, sclera anicteric. Neck: Soft, supple, symmetrical, no thyromegaly/JVD/LAD. Resp: CTAB, no R/R/W. CV: Not tachycardic on exam. nl S1/S2, no M/R/G, Abd: Soft, (+) BS, no guarding/rebound/organomegaly. Ext: +PP, -edema limited range of motion of lower extremity secondary to pain. Skin: warm/dry/intact Neuro/Psych: No focal deficits, CN II-XII grossly intact. AAOx3, cooperative , appropriate mood/affect. IVs and Medications Medications Reviewed: Medications were reviewed in detail Lab and Diagnostics Result Diagram: 06/16/17 0525 06/16/17 0525 [facility] Name: ROGER REID Age/Sex: 86/F Attend Dr: Lucas Barcenas Acct: [id number] Unit: [id number] Status: ADM IN Location: [facility] 1002-1 Re06/11/17 Disch: Specimen: [id number] Collected: 06/11/17 Status: LINO Canales#: [id number] Received: 06/11/17 Source: RANDOM Sp Desc : Subm Dr: Sherman Langford DO Ordered: URINE CULT Procedure Result Verified Site Microbiology ARTHUR CULT URINE Final 06/13/17 Organism 1 ESCHERICHIA COLI U COLONY COUNT/QUANTITY >100,000 CFU/ml Cefazolin-predicts results for the oral agents, cefaclor,cefdinir, cefpodoximen, cefprozil, cefuroximne axetil, cephalexin and loracarbed when used for therapy of uncomplicated UTI's due to E. coli, K. pneumoniae, and Proteus mirabilis. Cefpodoxime, cefdinir and cefuroxime axetil may be tested individually because some isolates may be susceptible to these agents while testing resistant to cefazolin. (CLSI Z533-G86 pg 53) 1. ESCHERICHIA COLI M.I.C Interp --------- ------ * AMOXICILLIN/CLAVULATE <=2 S * AMPICILLIN 4 S * CEFAZOLIN (CEPHALOSPORIN) UTI 4 S * CEFEPIME <=1 S * CEFTRIAXONE <=1 S * CEFUROXIME SODIUM 4 S * CIPROFLOXACIN <=0.25 S * ERTAPENEM <=0.5 S * GENTAMICIN <=1 S * IMIPENEM <=1 S * LEVOFLOXACIN <=0.12 S * NITROFURANTOIN <=16 S * TETRACYCLINE <=1 S * TOBRAMYCIN <=1 S * TRIMETHOPRIM/SULFAMETHOXAZOLE <=20 S X-Rays, CTs and MRIs PROCEDURE: X-RAY PELVIS W/LAT HIP (RT) ([id number]) IMPRESSION: Impacted right femoral neck fracture 12-lead ECG 06/15- EKG- Sinus Rythm 06/15- EKG- SVT Assessment & Plan The patient is a 86 -year-old white female with history of HTN, hyperparathyroidism, osteoporosis, and OA who presented to the ED for right hip pain after a mechanical ground-level fall earlier today. Admitted for right femoral neck impacted fracture s/p right hip hemiarthroplasty performed on 06/[address] Theron Deluca # Right Femoral Neck Fracture, Acute, present on admission - As demonstrated on hip xray. - Orthopedics consulted, s/p right hip hemiarthroplasty performed on 06/12/[address] Theron Deluca postop day #4 - Patient was initially thought and is having sinus tachycardia so was repleted with fluids. - Pain control with Toradol, Percocet, and IV Dilaudid for severe pain preoperatively. Postoperatively pain control per orthopedic surgery. - Physical therapy recommends discharge to senior care facility at this time Surgery Discharge Instructions- Weight-bear as tolerated on the right lower extremity using front-wheeled walker. Continue by mouth pain medication using Percocet 5/325 or [place] 5/325. Consider Vistaril use if needed. Continue Lovenox 40 subcutaneous daily for 4 weeks postoperatively. Interoperative dressing is changed to postoperative dressing is morning and wound is in good condition. Payton remains in place secondary to poor out of bed mobility. Payton will be discontinued today if patient can achieve mobility for bedside commode. # Supraventricular tachycardia postoperatively today, active - This appears to be due to a component of dehydration and not being on her beta angela. Therefore have given a bolus of normal saline and started normal saline at 100 mL an hour and have restarted her atenolol. - Continue cardiac monitoring - Patient has had multiple episodes of SVT confirmed by EKG. Patient will spontaneously convert to sinus rhythm. Patient denies any symptoms during these episodes. - Will start patient on metoprolol twice a day while monitoring for hypotension. - Will get echocardiogram- which did not show any left ventricular dysfunction. -Cardiology consulted, Dr. Terry Velasquez- appreciate assistance and recommendations. On 06/15 patient was started on amiodarone and has had heart rates less than 100 since starting.Recs below. - Start amiodarone by mouth 400 mg twice a day for one week and then 400 mg daily for one week and then 200 mg daily for one month and then stop. Thyroid function was normal on admissio - Recommended follow-up with cardiology in 3 months for a monitor to assess SVT # Escherichia coli UTI, present on admission - UA positive for nitrites and trace LEs and 6-10 white blood cells per high- power field. - Ceftriaxone was started in the ED on 06/11 - Changed to by mouth Ceftin ER on . Day 5 of antibiotics will continue for 10 days. - WBC is down trending. # Essential HTN, present on admission - Mildly elevated on Admission, likely exacerbated due to pain - Will continue Lisinopril - Initially restarted her home atenolol 25 mg by mouth daily, pt does not want dose/med changed. - Change to metoprolol 12.5 twice a day due to SVT. Started on amiodarone as above will monitor blood pressure and can decrease or stop metoprolol if needed. # Hyperparathyroidism, present on admission, - Currently undergoing evaluation for a parathyroid nodule - Ca level mildly elevated on admission, currently within normal limits. # Osteoporosis, present on admission - Was previously on bisphosphonate therapy, not currently taking. # Osteoarthritis, present on admission - S/p bilateral TKR, pain management as above Tylenol prn fever/pain Bowel Regimen prn constipation, No BM since admit, +BS, passing gas. Disposition: anticipate discharge to senior care facility on postop day #4 , 06/15/2017 secondary to poor gait, mobility and safety issues -Follow-up in 2 weeks at [facility] orthopedic clinic with Dr. Theron Deluca. -Follow-up in 2 weeks at [facility] orthopedic clinic with Dr. Theron Deluca with AP pelvis and right cross table lateral hip x-rays on arrival. -For UTI- complete 7 day course of antibiotics. - Continue Lovenox 40 subcutaneous daily for 4 weeks postoperatively. Pain Evaluation: Adequate Pain Control VTE Prophylaxis: Sub-Q Enoxaparin (Lovenox 40 mg subcutaneous daily 4 weeks postop for DVT prophylaxis.) VTE Mechanical Devices: Intermittant Pneumatic CD Resuscitation Status: CPR: Attempt Resuscitation Satish Willingham MD Jun 16, 2017 11:49
[2017-06-16] MEDS ORDERED: Pharmacy Discharge Counseling XX SCH (15:40)
--- NOTE | 2017-06-16 15:41 | PCM.PHADCC ---
Subjective SVT Clinical Pharmacist Consult: Discharge Counseling (provided information regarding new start of Amiodarone) Objective Vital Signs Date Time Temp Pulse Resp B/P Pulse Ox O2 Delivery O2 Flow Rate FiO2 06/16/17 10:42 68 06/16/17 09:29 36.8 71 18 113/62 98 Room Air 06/16/17 08:23 73 109/73 06/16/17 05:31 37.0 75 18 90/59 96 Room Air 06/15/17 23:57 37.8 82 16 90/63 98 Room Air 06/15/17 20:32 37.9 107 18 96/62 95 Room Air 06/15/17 20:00 88 Intake and Output 06/14/17 06/15/17 06/16/17 00:00 00:00 00:00 Intake Total 4067 ml 1742 ml 2850 ml Output Total 1850 ml 2600 ml 3000 ml Balance 2217 ml -858 ml -150 ml Weight (Kilograms): 100.900 Height (Feet): 5 Height (Inches): 3.00 Test 06/11/17 20:14 06/11/17 21:17 06/12/17 05:47 06/14/17 06:00 Prothrombin Time 10.2sec (8.1-12.5) Prothromb Time International Ratio 0.95ratio Thyroid Stimulating Hormone (TSH) 1.790uIU/mL (0.450-4.500) Free Thyroxine 1.03ng/dL (0.82-1.77) Urine Color Straw (YELLOW) Urine Appearance Hazy (CLEAR,HAZY) Urine pH 5.0 (5.0-8.0) Urine Specific [place] 1.018 (1.003-1.035) Urine Protein Negativemg/dL (NEG,TRACE) Urine Glucose (UA) Negativemg/dL (NEGATIVE) Urine Ketones Negativemg/dL (NEGATIVE) Urine Occult Blood Negative (NEGATIVE) Urine Nitrite Positive (NEGATIVE) Urine Bilirubin Negative (NEGATIVE) Urine Urobilinogen Normalmg/dL (NORMAL) Urine Leukocyte Esterase Trace (NEGATIVE) Urine RBC 0-2/hpf (0-2) Urine WBC 6-10/hpf (0-5) Urine Epithelial Cells Few/hpf (NONE-MOD) Urine Crystals None seen (NONE SEEN) Urine Bacteria Many/hpf (NONE-FEW) Urine Hyaline Casts None/lpf (NONE) Urine Granular Casts None seen (NONE SEEN) Urine Waxy Casts None seen (NONE SEEN) Urine Red Blood Cell Casts None seen (NONE SEEN) Urine White Blood Cell Casts Rare (NONE SEEN) Urine Mucus Present (None Seen) Urine Trichomonas None seen (NONE SEEN) Urine Yeast None (NONE SEEN) Urinalysis Comment None Urine Culture Reflexed Indicated Ionized Calcium 1.44mmol/L (1.17-1.32) Magnesium Level 1.9mg/dL (1.6-2.6) Total Bilirubin 0.2mg/dL (0.0-1.2) Aspartate Amino Transf (AST/SGOT) 40U/L (0-50) Alanine Aminotransferase (ALT/SGPT) 21U/L (0-32) Alkaline Phosphatase 58U/L (25-165) Total Protein 5.4g/dL (6.4-8.4) Albumin 3.1g/dL (3.4-5.0) Test 06/16/17 05:25 White Blood Count 10.3th/mm3 (3.8-10.1) Red Blood Count 2.57mil/mm3 (3.90-5.20) Hemoglobin 7.8g/dL (12.0-15.6) Hematocrit 23.9% (35.0-46.0) Mean Corpuscular Volume 93.0fL (81-100) Mean Corpuscular Hemoglobin 30.4pg (27.0-35.0) Mean Corpuscular Hemoglobin Concent 32.6% (32.0-37.0) Red Cell Distribution Width 12.9% (12.3-15.4) Platelet Count 199bil/L (150-400) Neutrophils (%) (Auto) 59.9% (40-74) Lymphocytes (%) (Auto) 14.3% (14-46) Monocytes (%) (Auto) 18.1% (4-12) Eosinophils (%) (Auto) 5.3% (0-5) Basophils (%) (Auto) 0.5% (0-3) Sodium Level 135mEq/L (134-144) Potassium Level 4.8mEq/L (3.5-5.2) Chloride Level 104mEq/L (97-108) Carbon Dioxide Level 18mmol/L (18-29) Blood Urea Nitrogen 21mg/dL (8-27) Creatinine 0.97mg/dL (0.57-1.00) Estimat Glomerular Filtration Rate 78mL/min (>59) Glucose Level 108mg/dL (60-99) Calcium Level 8.8mg/dL (8.5-10.1) [facility] Jun 16, 2017 15:41
[2017-06-16 20:22] VITALS: BP 109/63; PULSE 81; RESP 16; O2SAT 98
[2017-06-17] MEDS: Sodium Chloride LOK Flush 10 mL Syringe IV SCH ×2 (00:30→08:52)
[2017-06-17 00:40] VITALS: BP 113/62; PULSE 77; RESP 18; O2SAT 98
[2017-06-17 05:17] VITALS: BP 100/57; PULSE 73; RESP 20; O2SAT 94
[2017-06-17 05:35] VITALS: PULSE 75
[2017-06-17 05:37] LABS: Mean Corpuscular Volume 95.1 fL (81-100)
[2017-06-17 05:38] LABS: BASOPHILS % (AUTO) 1 % (0-3); EOSINOPHILS % (AUTO) 3 % (0-5); MONOCYTES % (AUTO) 19 % (4-12); Mean Corpuscular Hemoglobin 30.4 pg (27.0-35.0); NEUTROPHILS % (AUTO) 63 % (40-74); Platelet Count 223 bil/L (150-400)
[2017-06-17 08:00] VITALS: PULSE 66
[2017-06-17] MEDS: Senna-Docusate 8.6-50 mg Tablet PO SCH (08:55)
[2017-06-17] MEDS ORDERED: HYDR-4003 PO (10:19)
[2017-06-17] MEDS ORDERED: AMIO200T PO (10:19)
[2017-06-17] MEDS ORDERED: METO25TA6 PO (10:19)
[2017-06-17] MEDS ORDERED: OXYC5TAB72 PO (10:19)
[2017-06-17] MEDS ORDERED: ENOX40DI8 SUBQ (10:19)
--- NOTE | 2017-06-17 10:22 | PCM.PNMED ---
Subjective Date of Service Jun 17, 2017 Subjective Patient reports no episodes of tachycardia overnight. Still had significant difficulty working with physical therapy and needed high level of assistance. Pain is well controlled. Exam Vital Signs Vital Sign - Last Date Time Temp Pulse Resp B/P Pulse Ox O2 Delivery O2 Flow Rate FiO2 06/17/17 05:35 75 06/17/17 05:17 37.1 20 100/57 94 Room Air 06/12/17 17:55 2 Intake and Output 06/16/17 06/16/17 06/17/17 Cumulative From/Thru 14:59 22:59 06:59 06/11/17 23:25 - 06/17/17 06:02 Intake Total 786 ml 300 ml 30322 ml Output Total 1300 ml 950 ml 75533 ml Balance -514 ml -650 ml 1078 ml Intake Oral 536 ml 300 ml 6566 ml IV Total 250 ml 8012 ml Output Urine Total 1300 ml 950 ml 16698 ml Estimated Blood Loss 200 ml # Bowel Movements 0 0 Exam Gen: NAD, AOx3. Lying in bed. HEENT: NCAT, PERRLA, EOMI, MMM, sclera anicteric. Neck: Soft, supple, symmetrical, no thyromegaly/JVD/LAD. Resp: CTAB, no R/R/W. CV: RRR nl S1/S2, no M/R/G, Abd: Soft, (+) BS, no guarding/rebound/organomegaly. Ext: +PP, -edema. limited range of motion of lower extremity secondary to pain. Skin: warm/dry/intact Neuro/Psych: No focal deficits, CN II-XII grossly intact. AAOx3, cooperative , appropriate mood/affect. IVs and Medications Medications Reviewed: Medications were reviewed in detail Lab and Diagnostics Result Diagram: 06/17/17 0500 06/17/17 0500 [facility] Name: ROGER REID Age/Sex: 86/F Attend Dr: Lucas Barcenas Acct: [id number] Unit: [id number] Status: ADM IN Location: [facility] [place] 1002-1 Re06/11/17 Disch: Specimen: [id number] Collected: 06/11/17 Status: COMP Req#: [id number] Received: 06/11/17 Source: RANDOM Sp Desc : Subm Dr: Sherman Langford DO Ordered: URINE CULT Procedure Result Verified Site Microbiology ARTHUR CULT URINE Final 06/13/17 Organism 1 ESCHERICHIA COLI U COLONY COUNT/QUANTITY >100,000 CFU/ml Cefazolin-predicts results for the oral agents, cefaclor,cefdinir, cefpodoximen, cefprozil, cefuroximne axetil, cephalexin and loracarbed when used for therapy of uncomplicated UTI's due to E. coli, K. pneumoniae, and Proteus mirabilis. Cefpodoxime, cefdinir and cefuroxime axetil may be tested individually because some isolates may be susceptible to these agents while testing resistant to cefazolin. (CLSI I323-V49 pg 53) 1. ESCHERICHIA COLI M.I.C Interp --------- ------ * AMOXICILLIN/CLAVULATE <=2 S * AMPICILLIN 4 S * CEFAZOLIN (CEPHALOSPORIN) UTI 4 S * CEFEPIME <=1 S * CEFTRIAXONE <=1 S * CEFUROXIME SODIUM 4 S * CIPROFLOXACIN <=0.25 S * ERTAPENEM <=0.5 S * GENTAMICIN <=1 S * IMIPENEM <=1 S * LEVOFLOXACIN <=0.12 S * NITROFURANTOIN <=16 S * TETRACYCLINE <=1 S * TOBRAMYCIN <=1 S * TRIMETHOPRIM/SULFAMETHOXAZOLE <=20 S X-Rays, CTs and MRIs PROCEDURE: X-RAY PELVIS W/LAT HIP (RT) ([id number]) IMPRESSION: Impacted right femoral neck fracture 12-lead ECG 06/15- EKG- Sinus Rythm 06/15- EKG- SVT Assessment & Plan The patient is a 86 -year-old white female with history of HTN, hyperparathyroidism, osteoporosis, and OA who presented to the ED for right hip pain after a mechanical ground-level fall earlier today. Admitted for right femoral neck impacted fracture s/p right hip hemiarthroplasty performed on 06/[address] Theron Deluca # Right Femoral Neck Fracture, Acute, present on admission - As demonstrated on hip xray. - Orthopedics consulted, s/p right hip hemiarthroplasty performed on 06/12/[address] Theron Deluca postop day #5 - Patient was initially thought and is having sinus tachycardia so was repleted with fluids. - Pain control with Toradol, Percocet, and IV Dilaudid for severe pain preoperatively. Postoperatively pain control per orthopedic surgery. - Physical therapy recommends discharge to assisted facility at this time Surgery Discharge Instructions- Weight-bear as tolerated on the right lower extremity using front-wheeled walker. Continue by mouth pain medication using Percocet 5/325 or [place] 5/325. Consider Vistaril use if needed. Continue Lovenox 40 subcutaneous daily for 4 weeks postoperatively. Interoperative dressing is changed to postoperative dressing is morning and wound is in good condition. [place] remains in place secondary to poor out of bed mobility. Payton can be discontinued if patient can achieve mobility for bedside commode. # Supraventricular tachycardia postoperatively today, active - This appears to be due to a component of dehydration and not being on her beta angela. Therefore have given a bolus of normal saline and started normal saline at 100 mL an hour and have restarted her atenolol. - Continue cardiac monitoring - Patient has had multiple episodes of SVT confirmed by EKG. Patient will spontaneously convert to sinus rhythm. Patient denies any symptoms during these episodes. - Will start patient on metoprolol twice a day while monitoring for hypotension. - Will get echocardiogram- which did not show any left ventricular dysfunction. -Cardiology consulted, Dr. Terry Velasquez- appreciate assistance and recommendations. On 06/15 patient was started on amiodarone and has had heart rates less than 100 since starting.Recs below. - Started amiodarone 06/15. Take 1 tab Amiodarone 400 mg twice a day for one week and then 400 mg daily for one week and then 200 mg daily for one month and then stop. Thyroid function was normal on admission - Recommended follow-up with cardiology in 3 months for a monitor to assess SVT # Escherichia coli UTI, present on admission - UA positive for nitrites and trace LEs and 6-10 white blood cells per high- power field. - Ceftriaxone was started in the ED on 06/11 - Changed to by mouth Ceftin ER on 71. Day 5 of antibiotics will continue for 10 days. - WBC is down trending. # Essential HTN, present on admission - Mildly elevated on Admission, likely exacerbated due to pain - Will continue Lisinopril - Initially restarted her home atenolol 25 mg by mouth daily, pt does not want dose/med changed. - Change to metoprolol 12.5 twice a day due to SVT. Started on amiodarone as above will monitor blood pressure and can decrease or stop metoprolol if needed. # Hyperparathyroidism, present on admission, - Currently undergoing evaluation for a parathyroid nodule - Ca level mildly elevated on admission, currently within normal limits. # Osteoporosis, present on admission - Was previously on bisphosphonate therapy, not currently taking. # Osteoarthritis, present on admission - S/p bilateral TKR, pain management as above Tylenol prn fever/pain Bowel Regimen prn constipation, No BM since admit, +BS, passing gas. Disposition: anticipate discharge to assisted facility on postop day #5 , 06/15/2017 secondary to poor gait, mobility and safety issues - Follow-up in 2 weeks at [facility] orthopedic clinic with Dr. Theron Deluca. - Follow-up in 2 weeks at [facility] orthopedic clinic with Dr. Theron Deluca with AP pelvis and right cross table lateral hip x-rays on arrival. - Payton remains in place secondary to poor out of bed mobility. Payton can be discontinued if patient can achieve mobility for bedside commode. - Recommended follow-up with a staple processing machine operator in 3 months for a monitor to assess SVT. Medication Instructs- -Started amiodarone 06/15. Take 1 tab Amiodarone 400 mg twice a day for one week and then 400 mg daily for one week and then 200 mg daily for one month and then stop - Continue Lovenox 40 subcutaneous daily for 4 weeks postoperatively until . - Continue Cefdinir for another 5 days until 06/22. - Stop Atenolol. - Stop Lisinopril for now, can resume after physical therapy complete. - Continue Metoprolol as blood pressure tolerated. Stop or decrease Metoprolol first before changing Amiodarone schedule. Pain Evaluation: Adequate Pain Control VTE Prophylaxis: Sub-Q Enoxaparin (Lovenox 40 mg subcutaneous daily 4 weeks postop for DVT prophylaxis.) VTE Mechanical Devices: Intermittant Pneumatic CD Resuscitation Status: CPR: Attempt Resuscitation Satish Willingham MD Jun 17, 2017 10:22
--- NOTE | 2017-06-17 10:26 | PCM.DIMED ---
Discharge Instructions Date of Service Jun 17, 2017 Dates of Hospitalization Jun 11, 2017 at 22:21 Discharge Diagnosis Discharge Diagnosis # Right Femoral Neck Fracture, Acute # Supraventricular tachycardia postoperatively # Escherichia coli UTI # Essential HTN # Hyperparathyroidism, # Osteoporosis, # Osteoarthritis, Medication Instructions Additional med instructions -Started amiodarone 06/15. Take 1 tab Amiodarone 400 mg twice a day for one week and then 400 mg daily for one week and then 200 mg daily for one month and then stop - Continue Lovenox 40 subcutaneous daily for 4 weeks postoperatively until . - Continue Cefdinir for another 5 days until 06/22. - Stop Atenolol. - Stop Lisinopril for now, can resume after physical therapy complete. - Continue Metoprolol as blood pressure tolerated. Stop or decrease Metoprolol first before changing Amiodarone schedule. Diet Discharge Diet: Heart Healthy Activity Discharge Activity: Other (Daily Physical Therapy ) Call your provider Call your provider for: Fever or Chills, Shortness of breath, Chest pain Patient Instructions Patient Instructions - Payton remains in place secondary to poor out of bed mobility. Payton can be discontinued if patient can achieve mobility for bedside commode. Follow-up plan - Follow-up in 2 weeks at [facility] orthopedic clinic with Dr. Theron Deluca. - Follow-up in 2 weeks at [facility] orthopedic clinic with Dr. Theron Deluca with AP pelvis and right cross table lateral hip x-rays on arrival. - Recommended follow-up with a reforestation worker in 3 months for a monitor to assess SVT. Follow-up with PCP in: 2 weeks Provider: Theron Deluca DO Follow-up in: 2 weeks Satish Willingham MD Jun 17, 2017 10:26
[2017-06-17 10:27] VITALS: BP 119/71; PULSE 74; RESP 19; O2SAT 96
[2017-06-17] MEDS: Cefdinir 25 mg/mL 60 mL Suspension PO SCH (10:43)
--- NOTE | 2017-06-17 14:06 | PCM.DC.MED ---
Discharge Summary Date of Service Jun 17, 2017 Dates of Hospitalization Date of Hospital Admission Jun 11, 2017 at 22:21 Date of Discharge: Jun 17, 2017 Providers: Admitting Physician: Yanni Luna MD Primary Care Physician: Solange Ma Attending Physician: Joaquin Thompson MD Diagnosis at Time of Discharge Diagnosis at Time of Discharge # Right Femoral Neck Fracture, Acute # Supraventricular tachycardia postoperatively # Escherichia coli UTI # Essential HTN # Hyperparathyroidism, # Osteoporosis, # Osteoarthritis, Procedures XRay, CTs & MRIs PROCEDURE: X-RAY PELVIS W/LAT HIP (RT) ([id number]) IMPRESSION: Impacted right femoral neck fracture ECG 12 Lead 06/15- EKG- Sinus Rythm 06/15- EKG- SVT Brief History 86-year-old woman history of hypertension admitted on 06/11/2017 for right hip fracture. Patient states that she was visiting her friend on the third floor of [facility] when she fell and broke her hip. She was evaluated and underwent right hip arthroplasty that she tolerated well. During postop course, she was noted to have paroxysmal supraventricular tachycardia with rates up to 160s. She feels good overall from cardiac standpoint and denies any chest pain, heart racing sensations, shortness of breath, lightheadedness, or syncope. Hospital Course The patient is a 86 -year-old white female with history of HTN, hyperparathyroidism, osteoporosis, and OA who presented to the ED for right hip pain after a mechanical ground-level fall earlier today. Admitted for right femoral neck impacted fracture s/p right hip hemiarthroplasty performed on 06/[address] Theron Deluca # Right Femoral Neck Fracture, Acute, present on admission - As demonstrated on hip xray. - Orthopedics consulted, s/p right hip hemiarthroplasty performed on 06/12/[address] Theron Deluca postop day #5 - Patient was initially thought and is having sinus tachycardia so was repleted with fluids. - Pain control with Toradol, Percocet, and IV Dilaudid for severe pain preoperatively. Postoperatively pain control per orthopedic surgery. - Physical therapy recommends discharge to detention facility at this time Surgery Discharge Instructions- Weight-bear as tolerated on the right lower extremity using front-wheeled walker. Continue by mouth pain medication using Percocet 5/325 or [place] 5/325. Consider Vistaril use if needed. Continue Lovenox 40 subcutaneous daily for 4 weeks postoperatively. Interoperative dressing is changed to postoperative dressing is morning and wound is in good condition. Apyton remains in place secondary to poor out of bed mobility. Payton can be discontinued if patient can achieve mobility for bedside commode. # Supraventricular tachycardia postoperatively today, active - This appears to be due to a component of dehydration and not being on her beta angela. Therefore have given a bolus of normal saline and started normal saline at 100 mL an hour and have restarted her atenolol. - Continue cardiac monitoring - Patient has had multiple episodes of SVT confirmed by EKG. Patient will spontaneously convert to sinus rhythm. Patient denies any symptoms during these episodes. - Will start patient on metoprolol twice a day while monitoring for hypotension. - Will get echocardiogram- which did not show any left ventricular dysfunction. -Cardiology consulted, Dr. Terry Velasquez- appreciate assistance and recommendations. On 06/15 patient was started on amiodarone and has had heart rates less than 100 since starting.Recs below. - Started amiodarone 06/15. Take 1 tab Amiodarone 400 mg twice a day for one week and then 400 mg daily for one week and then 200 mg daily for one month and then stop. Thyroid function was normal on admission - Recommended follow-up with cardiology in 3 months for a monitor to assess SVT # Escherichia coli UTI, present on admission - UA positive for nitrites and trace LEs and 6-10 white blood cells per high- power field. - Ceftriaxone was started in the ED on 06/11 - Changed to by mouth Ceftin ER on 71. Day 5 of antibiotics will continue for 10 days. - WBC is down trending. # Essential HTN, present on admission - Mildly elevated on Admission, likely exacerbated due to pain - Will continue Lisinopril - Initially restarted her home atenolol 25 mg by mouth daily, pt does not want dose/med changed. - Change to metoprolol 12.5 twice a day due to SVT. Started on amiodarone as above will monitor blood pressure and can decrease or stop metoprolol if needed. # Hyperparathyroidism, present on admission, - Currently undergoing evaluation for a parathyroid nodule - Ca level mildly elevated on admission, currently within normal limits. # Osteoporosis, present on admission - Was previously on bisphosphonate therapy, not currently taking. # Osteoarthritis, present on admission - S/p bilateral TKR, pain management as above Tylenol prn fever/pain Bowel Regimen prn constipation, No BM since admit, +BS, passing gas. Disposition: anticipate discharge to detention facility on postop day #5 , 06/15/2017 secondary to poor gait, mobility and safety issues - Follow-up in 2 weeks at [facility] orthopedic clinic with Dr. Theron Deluca. - Follow-up in 2 weeks at [facility] orthopedic clinic with Dr. Theron Deluca with AP pelvis and right cross table lateral hip x-rays on arrival. - Payton remains in place secondary to poor out of bed mobility. Payton can be discontinued if patient can achieve mobility for bedside commode. - Recommended follow-up with a screen roller in 3 months for a monitor to assess SVT. Medication Instructs- -Started amiodarone 06/15. Take 1 tab Amiodarone 400 mg twice a day for one week and then 400 mg daily for one week and then 200 mg daily for one month and then stop - Continue Lovenox 40 subcutaneous daily for 4 weeks postoperatively until . - Continue Cefdinir for another 5 days until 06/22. - Stop Atenolol. - Stop Lisinopril for now, can resume after physical therapy complete. - Continue Metoprolol as blood pressure tolerated. Stop or decrease Metoprolol first before changing Amiodarone schedule. Exam Vital Signs (Last) Date Time Temp Pulse Resp B/P Pulse Ox O2 Delivery O2 Flow Rate FiO2 06/17/17 10:27 36.8 74 19 119/71 96 Room Air 06/12/17 17:55 2 Test 06/11/17 20:14 06/11/17 21:17 06/12/17 05:47 06/14/17 06:00 Prothrombin Time 10.2sec (8.1-12.5) Prothromb Time International Ratio 0.95ratio Thyroid Stimulating Hormone (TSH) 1.790uIU/mL (0.450-4.500) Free Thyroxine 1.03ng/dL (0.82-1.77) Urine Color Straw (YELLOW) Urine Appearance Hazy (CLEAR,HAZY) Urine pH 5.0 (5.0-8.0) Urine Specific [place] 1.018 (1.003-1.035) Urine Protein Negativemg/dL (NEG,TRACE) Urine Glucose (UA) Negativemg/dL (NEGATIVE) Urine Ketones Negativemg/dL (NEGATIVE) Urine Occult Blood Negative (NEGATIVE) Urine Nitrite Positive (NEGATIVE) Urine Bilirubin Negative (NEGATIVE) Urine Urobilinogen Normalmg/dL (NORMAL) Urine Leukocyte Esterase Trace (NEGATIVE) Urine RBC 0-2/hpf (0-2) Urine WBC 6-10/hpf (0-5) Urine Epithelial Cells Few/hpf (NONE-MOD) Urine Crystals None seen (NONE SEEN) Urine Bacteria Many/hpf (NONE-FEW) Urine Hyaline Casts None/lpf (NONE) Urine Granular Casts None seen (NONE SEEN) Urine Waxy Casts None seen (NONE SEEN) Urine Red Blood Cell Casts None seen (NONE SEEN) Urine White Blood Cell Casts Rare (NONE SEEN) Urine Mucus Present (None Seen) Urine Trichomonas None seen (NONE SEEN) Urine Yeast None (NONE SEEN) Urinalysis Comment None Urine Culture Reflexed Indicated Ionized Calcium 1.44mmol/L (1.17-1.32) Magnesium Level 1.9mg/dL (1.6-2.6) Total Bilirubin 0.2mg/dL (0.0-1.2) Aspartate Amino Transf (AST/SGOT) 40U/L (0-50) Alanine Aminotransferase (ALT/SGPT) 21U/L (0-32) Alkaline Phosphatase 58U/L (25-165) Total Protein 5.4g/dL (6.4-8.4) Albumin 3.1g/dL (3.4-5.0) Test 06/17/17 05:00 White Blood Count 10.9th/mm3 (3.8-10.1) Red Blood Count 2.47mil/mm3 (3.90-5.20) Hemoglobin 7.5g/dL (12.0-15.6) Hematocrit 23.5% (35.0-46.0) Mean Corpuscular Volume 95.1fL (81-100) Mean Corpuscular Hemoglobin 30.4pg (27.0-35.0) Mean Corpuscular Hemoglobin Concent 31.9% (32.0-37.0) Red Cell Distribution Width 12.7% (12.3-15.4) Platelet Count 223bil/L (150-400) Neutrophils (%) (Auto) 63% (40-74) Lymphocytes (%) (Auto) 14% (14-46) Monocytes (%) (Auto) 19% (4-12) Eosinophils (%) (Auto) 3% (0-5) Basophils (%) (Auto) 1% (0-3) Sodium Level 135mEq/L (134-144) Potassium Level 4.8mEq/L (3.5-5.2) Chloride Level 102mEq/L (97-108) Carbon Dioxide Level 21mmol/L (18-29) Blood Urea Nitrogen 22mg/dL (8-27) Creatinine 0.96mg/dL (0.57-1.00) Estimat Glomerular Filtration Rate 79mL/min (>59) Glucose Level 108mg/dL (60-99) Calcium Level 9.0mg/dL (8.5-10.1) Microbiology Results Name: ROGER REID Age/Sex: 86/F Attend Dr: Lucas Barcenas Acct: [id number] Unit: [id number] Status: ADM IN Location: [facility] [place] 1002-1 Re06/11/17 Disch: Specimen: [id number] Collected: 06/11/17 Status: COMP Req#: [id number] Received: 06/11/17 Source: [facility]ANDOM Sp Desc : Subm Dr: Andelin,Sherman R DO Ordered: URINE CULT Procedure Result Verified Site Microbiology ARTHUR CULT URINE Final 06/13/17-828 Organism 1 ESCHERICHIA COLI U COLONY COUNT/QUANTITY >100,000 CFU/ml Cefazolin-predicts results for the oral agents, cefaclor,cefdinir, cefpodoximen, cefprozil, cefuroximne axetil, cephalexin and loracarbed when used for therapy of uncomplicated UTI's due to E. coli, K. pneumoniae, and Proteus mirabilis. Cefpodoxime, cefdinir and cefuroxime axetil may be tested individually because some isolates may be susceptible to these agents while testing resistant to cefazolin. (CLSI C563-N71 pg 53) 1. ESCHERICHIA COLI M.I.C Interp --------- ------ * AMOXICILLIN/CLAVULATE <=2 S * AMPICILLIN 4 S * CEFAZOLIN (CEPHALOSPORIN) UTI 4 S * CEFEPIME <=1 S * CEFTRIAXONE <=1 S * CEFUROXIME SODIUM 4 S * CIPROFLOXACIN <=0.25 S * ERTAPENEM <=0.5 S * GENTAMICIN <=1 S * IMIPENEM <=1 S * LEVOFLOXACIN <=0.12 S * NITROFURANTOIN <=16 S * TETRACYCLINE <=1 S * TOBRAMYCIN <=1 S * TRIMETHOPRIM/SULFAMETHOXAZOLE <=20 S Discharge Medications Discharge Medications Amiodarone (Amiodarone) 200 Mg Tablet 400 MG PO BID Prescribed by: JOAQUIN THOMPSON MD Atorvastatin (Lipitor) 20 Mg Tablet 20 MG PO DAILY (Reported) Enoxaparin Sodium (Enoxaparin Sodium) 40 Mg/0.4 Ml Syringe 40 MG SUBQ Q24 Prescribed by: JOAQUIN THOMPSON MD Metoprolol Tartrate (Metoprolol Tartrate) 25 Mg Tablet 12.5 MG PO BID Prescribed by: JOAQUIN THOMPSON MD Oxybutynin Chloride (Oxybutynin Chloride) 5 Mg Tablet 5 MG PO BID (Reported) As needed Hydrocodone-Acetaminophen 5-325 mg (Hydrocodone-Acetaminophen 5-325 mg) 1 Each Tablet 1-2 TABLET PO Q4H PRN PRN For Moderate Pain Prescribed by: JOAQUIN THOMPSON MD oxyCODONE (oxyCODONE) 5 Mg Tablet 5-10 MG PO Q4H PRN PRN For Severe Pain Prescribed by: JOAQUIN THOMPSON MD Additional med instructions -Started amiodarone 06/15. Take 1 tab Amiodarone 400 mg twice a day for one week and then 400 mg daily for one week and then 200 mg daily for one month and then stop - Continue Lovenox 40 subcutaneous daily for 4 weeks postoperatively until . - Continue Cefdinir for another 5 days until 06/22. - Stop Atenolol. - Stop Lisinopril for now, can resume after physical therapy complete. - Continue Metoprolol as blood pressure tolerated. Stop or decrease Metoprolol first before changing Amiodarone schedule. Followup Plan Disposition: [facility]15/2017 secondary to poor gait, mobility and safety issues - Follow-up in 2 weeks at [facility] with Dr. Theron Deluca. - Follow-up in 2 weeks at [facility] with Dr. Theron Deluca with AP pelvis and right cross table lateral hip x-rays on arrival. - Payton remains in place secondary to poor out of bed mobility. Payton can be discontinued if patient can achieve mobility for bedside commode. - Recommended follow-up with a screen roller in 3 months for a monitor to assess SVT. Follow-up plan - Follow-up in 2 weeks at [facility] orthopedic clinic with Dr. Theron Deluca. - Follow-up in 2 weeks at [facility] with Dr. Theron Deluca with AP pelvis and right cross table lateral hip x-rays on arrival. - Recommended follow-up with a screen roller in 3 months for a monitor to assess SVT. Discharge Diet: Heart Healthy Discharge Activity: Other (Daily Physical Therapy ) Patient Instructions - Payton remains in place secondary to poor out of bed mobility. Payton can be discontinued if patient can achieve mobility for bedside commode. Follow-up with PCP in: 2 weeks Provider: Theron Deluca DO Follow-up in: 2 weeks Joaquin Thompson MD Jun 17, 2017 14:06
== END 2017-06-17 13:10 | DRG 470 ==
LOC: SED 15:08 → OSC 22:21
PROVIDERS: ADMIT Specialist; ATTEND Internal Medicine
PROC: 0SR90JA Replacement of Right Hip Joint with Synthetic Substitute, Uncemented, Open Approach (ICD-10-PCS; principal; 2017-06-12 11:30)
DX: S72.001A Fracture of unspecified part of neck of right femur, initial encounter for closed fracture (principal); N39.0 Urinary tract infection, site not specified; I47.1 Supraventricular tachycardia; W18.30XA Fall on same level, unspecified, initial encounter; Y92.239 Unspecified place in hospital as the place of occurrence of the external cause; Z87.891 Personal history of nicotine dependence; I10 Essential (primary) hypertension; E21.3 Hyperparathyroidism, unspecified; B96.20 Unspecified Escherichia coli [E. coli] as the cause of diseases classified elsewhere; I95.9 Hypotension, unspecified